=== PATIENT | male | born 1970 | race Caucasian/White ===

== ENCOUNTER → 2017-08-02 | Outpatient (CLI) | payer BC ==
--- NOTE | 2017-08-02 14:23 | CT ---
EXAMINATION TYPE: CT abdomen pelvis wo con DATE OF EXAM: 08/02/2017 COMPARISON: NONE HISTORY: lower anterior abdominal pain X [address] DLP: 1095.6 mGycm Examination of the solid and hollow viscera is limited given the lack of contrast. FINDINGS: LUNG BASES: No evidence for nodule. No evidence for infiltrate. LIVER/GB: The gallbladder is unremarkable. No space-occupying hepatic lesion. PANCREAS: No pancreatic mass identified. No inflammatory process seen. SPLEEN: No evidence for splenomegaly. No intrasplenic lesions seen. ADRENALS: No adrenal nodules identified. No evidence for thickening. KIDNEYS: No evidence for renal mass. No nephrolithiasis. No hydronephrosis. BOWEL: Wall thickening with perisigmoid inflammatory change compatible with acute diverticulitis of t he sigmoid colon. No evidence for abscess or perforation. No evidence for pneumoperitoneum. Lymph nodes: No evidence for adenopathy greater than 1 cm. Abdominal aorta: Atheromatous changes seen. No evidence for aneurysm. Genital organs: No significant abnormality. Other: No significant abnormality. IMPRESSION: 1 UNCOMPLICATED ACUTE SIGMOID DIVERTICULITIS.
== END | disposition home or self-care (01) ==
LOC: RADCTMAIN 13:50
PROVIDERS: ATTEND Nurse Practitioner Adult Health
DX: K57.32 Diverticulitis of large intestine without perforation or abscess without bleeding (principal)
CPT/HCPCS: 74176

== ENCOUNTER 2018-01-03 08:25 | Emergency (ER) | payer BC ==
[2018-01-03] MEDS ORDERED: MORPHINE SULFATE 4MG/4ML SYRG IV STA (08:38)
[2018-01-03] MEDS ORDERED: SODIUM CHLORIDE 0.9% 1,000 ML IV STA ×2 (08:38)
[2018-01-03] MEDS ORDERED: KETOROLAC 30 MG/ML 1 ML VIAL IVP STA (08:38)
--- NOTE | 2018-01-03 08:42 | ED ---
Abdominal Pain HPI - General Chief Complaint: Abdominal Pain Stated Complaint: Kidney stones Time Seen by Provider: 01/03/18 08:30 Source: patient, RN notes reviewed, old records reviewed Mode of arrival: ambulatory Limitations: no limitations - History of Present Illness Initial Comments: This patient's a 47-year-old male with history of kidney stones presents emergency Department with 2 weeks of left sided flank pain. He reports is now radiating towards his groin. He was seen by his primary care physician and had an outpatient CAT scan. There is an 8 mm obstructing left ureter stone. He reports that he was supposed to follow-up with Dr. Meehan the urologist. He reports that the records were not sent over there. He reports that taking the Almo at home has not been managing his pain. Patient has not been on Flomax or Toradol. He is had a history of kidney stones in the past his previous urologist was from [place]. Patient relates these had no vomiting but does feel nauseated. He reports his urines been very dark. Normal bowel movements.Patient denies any recent fever, chills, shortness of breath, chest pain, back pain, abdominal pain, nausea vomiting, numbness or tingling, dysuria or hematuria, constipation or diarrhea, headaches or visual changes, or any other current symptoms - Related Data Home Medications Medication Instructions Recorded Confirmed HYDROcodone/APAP 5-325MG [Almo 1 tab PO Q6HR PRN 01/03/18 01/03/18 5-325] Previous Rx's Medication Instructions Recorded HYDROcodone/APAP 5-325MG [Almo 1 tab PO Q6HR PRN #15 tab 01/03/18 5-325] Ketorolac [Toradol] 10 mg PO Q6HR #20 tab 01/03/18 Ondansetron Odt [Zofran Odt] 4 mg PO Q8HR PRN #12 tab 01/03/18 Tamsulosin [Flomax] 0.4 mg PO DAILY #10 cap 01/03/18 Allergies Allergy/AdvReac Type Severity Reaction Status Date / Time No Known Allergies Allergy Verified 01/03/18 08:55 Review of Systems ROS Statement: Those systems with pertinent positive or pertinent negative responses have been documented in the HPI. ROS Other: All systems not noted in ROS Statement are negative. Past Medical History Additional Past Medical History / Comment(s): kidney stones, diverticulosis History of Any Multi-Drug Resistant Organisms: None Reported Additional Past Surgical History / Comment(s): vasectomy Past Psychological History: Depression Smoking Status: Never smoker Past Alcohol Use History: Rare Past Drug Use History: None Reported General Exam - General Exam Comments Initial Comments: 47-year-old male. Patient does not appear to be in any acute distress. Limitations: no limitations General appearance: alert, in no apparent distress Head exam: Present: atraumatic, normocephalic, normal inspection Eye exam: Present: normal appearance, PERRL, EOMI. Absent: scleral icterus, conjunctival injection, periorbital swelling ENT exam: Present: normal exam, mucous membranes moist Neck exam: Present: normal inspection. Absent: tenderness, meningismus, lymphadenopathy Respiratory exam: Present: normal lung sounds bilaterally. Absent: respiratory distress, wheezes, rales, rhonchi, stridor Cardiovascular Exam: Present: regular rate, normal rhythm, normal heart sounds. Absent: systolic murmur, diastolic murmur, rubs, gallop, clicks GI/Abdominal exam: Present: soft, tenderness (LLQ tenderness, Left CVA tenderness), normal bowel sounds. Absent: distended, guarding, rebound, rigid Extremities exam: Present: normal inspection, full ROM, normal capillary refill. Absent: tenderness, pedal edema, joint swelling, calf tenderness Back exam: Present: normal inspection Neurological exam: Present: alert, oriented X3, CN II-XII intact Psychiatric exam: Present: normal affect, normal mood Skin exam: Present: warm, dry, intact, normal color. Absent: rash Course Vital Signs 01/03/18 01/03/18 01/03/18 08:25 10:09 12:17 Temperature 98.1 F 97.6 F 97.1 F L Pulse Rate 68 57 L 64 Respiratory 18 Rate Blood Pressure 139/70 114/55 121/57 O2 Sat by Pulse 96 95 96 Oximetry - Reevaluation(s) Reevaluation #1: 01/03/18 10:06 Patient is reevaluated and pain is a 2 out of 10. Inform patient that the stone has moved. Reevaluation #2: 01/03/18 12:[address] Koehler. He recommends that since that Is Most of Our the Patient Can Be Discharged with Cipro and Will Give Patient Flomax and Sent Home with Further Pain Medication and Nausea Medicine. Patient Follow-Up with Urology. Medical Decision Making - Medical Decision Making 47 year old male presents with Left flank and LLQ pain, diagnosed with 8mm UPJ stone [address] scan, pain is not managed with at home Almo. At this time the stone has moved to the UVJ based on KUB report. Labs reviewed, hematuria related to stone. 42 WBC, will send for urine culture. He has no vomting. After morphine and toradol his pain is improved. Renal function is stable. Discussed case with Leonila Duran discharge home with flomax, toradol and norco. Discussed follow up in office. Patient agrees to treatment plan and will comply. - Lab Data Result diagrams: 01/03/18 09:14 01/03/18 09:14 Lab Results 01/03/18 01/03/18 01/03/18 Range/Units 09:14 09:14 09:14 WBC 12.4 H (3.8-10.6) k/uL RBC 4.63 (4.30-5.90) m/uL Hgb 14.3 (13.0-17.5) gm/dL Hct 41.8 (39.0-53.0) % MCV 90.3 (80.0-100.0) fL MCH 30.8 (25.0-35.0) pg MCHC 34.1 (31.0-37.0) g/dL RDW 13.1 (11.5-15.5) % Plt Count 335 (150-450) k/uL Neutrophils % 73 % Lymphocytes % 14 % Monocytes % 7 % Eosinophils % 4 % Basophils % 0 % Neutrophils # 9.1 H (1.3-7.7) k/uL Lymphocytes # 1.7 (1.0-4.8) k/uL Monocytes # 0.9 (0-1.0) k/uL Eosinophils # 0.5 (0-0.7) k/uL Basophils # 0.1 (0-0.2) k/uL Sodium 140 (137-145) mmol/L Potassium 4.0 (3.5-5.1) mmol/L Chloride 106 (98-107) mmol/L Carbon Dioxide 23 (22-30) mmol/L Anion Gap 11 mmol/L BUN 15 (9-20) mg/dL Creatinine 1.25 (0.66-1.25) mg/dL Est GFR (CKD-EPI)AfAm 80 (>60 ml/min/1.73 sqM) Est GFR (CKD-EPI)NonAf 69 (>60 ml/min/1.73 sqM) Glucose 92 (74-99) mg/dL Calcium 9.3 (8.4-10.2) mg/dL Total Bilirubin 0.4 (0.2-1.3) mg/dL AST 17 (17-59) U/L ALT 19 L (21-72) U/L Alkaline Phosphatase 61 (38-126) U/L Total Protein 6.3 (6.3-8.2) g/dL Albumin 3.3 L (3.5-5.0) g/dL Amylase 61 (30-110) U/L Lipase 75 (23-300) U/L Urine Color Light Red Urine Appearance Cloudy (Clear) Urine pH 5.0 (5.0-8.0) Ur Specific Coleman 1.013 (1.001-1.035) Urine Protein 1+ H (Negative) Urine Glucose (UA) Negative (Negative) Urine Ketones Negative (Negative) Urine Blood Large H (Negative) Urine Nitrite Negative (Negative) Urine Bilirubin Negative (Negative) Urine Urobilinogen <2.0 (<2.0) mg/dL Ur Leukocyte Esterase Small H (Negative) Urine RBC >182 H (0-5) /hpf Urine WBC 42 H (0-5) /hpf Urine WBC Clumps Rare H (None) /hpf Urine Bacteria Few H (None) /hpf Urine Mucus Few H (None) /hpf - Radiology Data Radiology results: report reviewed Continue distal progression of a millimeter left ureteral calculus from proximal to distal ureter level likely accounting for patient's symptoms. Disposition Clinical Impression: Left ureteral stone Disposition: HOME SELF-CARE Condition: Good Instructions: Ureteral Stones (ED) Additional Instructions: Patient advised to rest, increase fluids. Take all the medications as prescribed. follow up with urology in the next 1-2 days. Return to emergency department if any alarming signs or symptoms occur. Prescriptions: HYDROcodone/APAP 5-325MG [Almo 5-325] 1 tab PO Q6HR PRN #15 tab PRN Reason: Pain Ketorolac [Toradol] 10 mg PO Q6HR #20 tab Ondansetron Odt [Zofran Odt] 4 mg PO Q8HR PRN #12 tab PRN Reason: Pain Tamsulosin [Flomax] 0.4 mg PO DAILY #10 cap Is patient prescribed a controlled substance at discharge?: Yes If prescribed controlled substance>3 days was MAPS reviewed?: Yes When asked, does pt state using other controlled substances?: No Referrals: Ulysses Cisneros MD [Primary Care Provider] - 1-2 days Robbie Holden MD [STAFF PHYSICIAN] - 1-2 days Hira Ross MD [STAFF PHYSICIAN] - 1-2 days Time of Disposition: 12:07
[2018-01-03 09:34] LABS: Basophils # (A) 0.1 k/uL (0-0.2); Basophils % (A) 0 %; Eosinophils # (A) 0.5 k/uL (0-0.7); Eosinophils % (A) 4 %; HCT 41.8 % (39.0-53.0); HGB 14.3 gm/dL (13.0-17.5); Lymphocytes # (A) 1.7 k/uL (1.0-4.8); Lymphocytes % (A) 14 %; MCH 30.8 pg (25.0-35.0); MCHC 34.1 g/dL (31.0-37.0); MCV 90.3 fL (80.0-100.0); Mean Platelet Volume 6.8; Monocytes # (A) 0.9 k/uL (0-1.0); Monocytes % (A) 7 %; Neutrophils # (A) 9.1 k/uL (1.3-7.7); Neutrophils % (A) 73 %; Platelet Count 335 k/uL (150-450); RBC 4.63 m/uL (4.30-5.90); RDW 13.1 % (11.5-15.5); WBC 12.4 k/uL (3.8-10.6)
[2018-01-03 09:47] LABS: Appearance,Urine Cloudy (Clear); Bacteria,Urine Few /hpf; Bilirubin,Urine Negative (Negative); Blood,Urine Large (Negative); Color,Urine Light Red; Glucose,Urine (UA) Negative (Negative); Ketones,Urine Negative (Negative); Leukocyte Esterase,Urine Small (Negative); Mucus,Urine Few /hpf; Nitrite,Urine Negative (Negative); Protein,Urine 1+ (Negative); RBC,Urine >182 /hpf (0-5); Specific Gravity,Urine 1.013 (1.001-1.035); Urobilinogen,Urine <2.0 mg/dL (<2.0); WBC,Urine 42 /hpf (0-5)
[2018-01-03 09:49] LABS: Albumin 3.3 g/dL (3.5-5.0); Calcium 9.3 mg/dL (8.4-10.2); Total Bilirubin 0.4 mg/dL (0.2-1.3); Total Protein 6.3 g/dL (6.3-8.2)
--- NOTE | 2018-01-03 09:58 | XR ---
EXAMINATION TYPE: XR KUB DATE OF EXAM: 01/03/2018 9:45 AM CLINICAL HISTORY: Left-sided flank pain. TECHNIQUE: Two Upright KUB images of the abdomen are obtained. COMPARISON: CT abdomen from 4 days ago. FINDINGS: Suspect there is been interval passage of 8 mm calculus down to distal left ureter level as there is corresponding calculus over left mid to lower part of sacrum on current study. There is overall nonobstructive bowel gas pattern. Visualized lung bases are clear. Visualized osseou s structures are intact. No pneumoperitoneum is evident. IMPRESSION: Continued distal progression of 8mm left ureter calculus from proximal to distal ureter l evel likely accounting for patient's symptoms.
[2018-01-03 12:21] VITALS: BP 121/57; PULSE 64; RESP 18; TEMP 97.1
== END 2018-01-03 12:20 | disposition home or self-care (01) ==
LOC: EC 08:25
DX: N20.1 Calculus of ureter (principal)
CPT/HCPCS: 36415; 80053; 82150; 83690; 85025; 81001; 87086; 74018; 99284; 96374; 96375; 96361 ×3; J1885; J2270

== ENCOUNTER 2018-01-24 13:00 | Inpatient (IN) | payer BC ==
[2018-01-24 13:40] LABS: Appearance,Urine Clear (Clear); Bacteria,Urine Rare /hpf; Bilirubin,Urine Negative (Negative); Blood,Urine Small (Negative); Color,Urine Yellow; Glucose,Urine (UA) Negative (Negative); Ketones,Urine Negative (Negative); Leukocyte Esterase,Urine Negative (Negative); Nitrite,Urine Negative (Negative); Protein,Urine Negative (Negative); RBC,Urine 1 /hpf (0-5); Specific Gravity,Urine 1.005 (1.001-1.035); Squamous Epithelial Cell,Urine <1 /hpf (0-4); Urobilinogen,Urine <2.0 mg/dL (<2.0); WBC,Urine 2 /hpf (0-5)
[2018-01-24] MEDS ORDERED: metroNIDAZOLE-NS PMX 500 MG in SALINE 1 100ML.BAG IVPB STA (13:58)
[2018-01-24] MEDS ORDERED: LEVOFLOXACIN 750MG-D5W PMX 750 MG in DEXTROSE/WATER 1 150ML.BAG IVPB STA (13:58)
[2018-01-24 14:24] LABS: Basophils % (A) 0 %; Eosinophils # (A) 0.3 k/uL (0-0.7); Eosinophils % (A) 3 %; HCT 39.9 % (39.0-53.0); HGB 13.1 gm/dL (13.0-17.5); Lymphocytes # (A) 2.1 k/uL (1.0-4.8); Lymphocytes % (A) 27 %; MCH 29.9 pg (25.0-35.0); MCHC 32.9 g/dL (31.0-37.0); MCV 90.9 fL (80.0-100.0); Mean Platelet Volume 6.5; Monocytes # (A) 0.7 k/uL (0-1.0); Monocytes % (A) 9 %; Neutrophils # (A) 4.7 k/uL (1.3-7.7); Neutrophils % (A) 60 %; Platelet Count 463 k/uL (150-450); RBC 4.39 m/uL (4.30-5.90); RDW 12.7 % (11.5-15.5); WBC 7.9 k/uL (3.8-10.6)
[2018-01-24 14:33] LABS: ALT 38 U/L (21-72); AST 38 U/L (17-59); Albumin 3.2 g/dL (3.5-5.0); Alkaline Phosphatase 50 U/L (38-126); Anion Gap 12 mmol/L; Blood Urea Nitrogen 8 mg/dL (9-20); Calcium 9.3 mg/dL (8.4-10.2); Carbon Dioxide 26 mmol/L (22-30); Chloride 104 mmol/L (98-107); Glucose 94 mg/dL (74-99); Lipase 105 U/L (23-300); Potassium 4.1 mmol/L (3.5-5.1); Sodium 142 mmol/L (137-145); Total Bilirubin 0.1 mg/dL (0.2-1.3); Total Protein 5.9 g/dL (6.3-8.2)
[2018-01-24 14:37] LABS: INR 1.2 (<1.2); Partial Thromboplastin Time 24.1 sec (22.0-30.0); Prothrombin Time 11.7 sec (9.0-12.0)
--- NOTE | 2018-01-24 14:49 | ED ---
Abdominal Pain HPI - General Chief Complaint: Abdominal Pain Stated Complaint: diverticulitis Time Seen by Provider: 01/24/18 13:36 Source: patient, RN notes reviewed Mode of arrival: ambulatory Limitations: no limitations - History of Present Illness Initial Comments: 47-year-old male presented emergency Department chief complaint of left lower quadrant abdominal pain. Patient's been having this pain over the last 4-[address] 2 days ago which showed diverticulitis. Patient's been taking Cipro Flagyl as directed by PCP. PCP did call ER attempted to directly admit the patient though was unsuccessful. Patient had been no improvement pain continuation of diarrhea and fevers at home. - Related Data Home Medications Medication Instructions Recorded Confirmed Aluminum Chloride [Drysol] 1 applic TOPICAL DAILY 01/24/18 01/24/18 Ciprofloxacin HCl [Cipro] 500 mg PO Q12HR 01/24/18 01/24/18 metroNIDAZOLE [Flagyl] 500 mg PO TID 01/24/18 01/24/18 Previous Rx's Medication Instructions Recorded Tamsulosin [Flomax] 0.4 mg PO DAILY #10 cap 01/03/18 Allergies Allergy/AdvReac Type Severity Reaction Status Date / Time No Known Allergies Allergy Verified 01/24/18 13:53 Review of Systems ROS Statement: Those systems with pertinent positive or pertinent negative responses have been documented in the HPI. ROS Other: All systems not noted in ROS Statement are negative. Past Medical History Additional Past Medical History / Comment(s): kidney stones, diverticulosis History of Any Multi-Drug Resistant Organisms: None Reported Additional Past Surgical History / Comment(s): vasectomy Past Psychological History: Depression Smoking Status: Never smoker Past Alcohol Use History: Rare Past Drug Use History: None Reported General Exam Limitations: no limitations General appearance: alert, in no apparent distress Head exam: Present: atraumatic, normocephalic, normal inspection Respiratory exam: Present: normal lung sounds bilaterally. Absent: respiratory distress, wheezes, rales, rhonchi, stridor Cardiovascular Exam: Present: regular rate, normal rhythm, normal heart sounds. Absent: systolic murmur, diastolic murmur, rubs, gallop, clicks GI/Abdominal exam: Present: soft, tenderness (Moderate left lower quadrant tenderness), normal bowel sounds. Absent: distended, guarding, rebound, rigid Back exam: Absent: CVA tenderness (R), CVA tenderness (L) Course Vital Signs 01/24/18 13:22 Temperature 98.2 F Pulse Rate 71 Respiratory 18 Rate Blood Pressure 131/74 O2 Sat by Pulse 96 Oximetry Medical Decision Making - Medical Decision Making 47-year-old male present emergency department for admission for diverticulitis. Patient's fell outpatient treatment. Patient lab work, CT was reviewed with PCP. - Lab Data Result diagrams: 01/24/18 14:17 01/24/18 14:17 Lab Results 01/24/18 01/24/18 01/24/18 Range/Units 13:26 14:17 14:17 WBC 7.9 (3.8-10.6) k/uL RBC 4.39 (4.30-5.90) m/uL Hgb 13.1 (13.0-17.5) gm/dL Hct 39.9 (39.0-53.0) % MCV 90.9 (80.0-100.0) fL MCH 29.9 (25.0-35.0) pg MCHC 32.9 (31.0-37.0) g/dL RDW 12.7 (11.5-15.5) % Plt Count 463 H (150-450) k/uL Neutrophils % 60 % Lymphocytes % 27 % Monocytes % 9 % Eosinophils % 3 % Basophils % 0 % Neutrophils # 4.7 (1.3-7.7) k/uL Lymphocytes # 2.1 (1.0-4.8) k/uL Monocytes # 0.7 (0-1.0) k/uL Eosinophils # 0.3 (0-0.7) k/uL Basophils # 0.0 (0-0.2) k/uL PT (9.0-12.0) sec INR (<1.2) APTT (22.0-30.0) sec Sodium 142 (137-145) mmol/L Potassium 4.1 (3.5-5.1) mmol/L Chloride 104 (98-107) mmol/L Carbon Dioxide 26 (22-30) mmol/L Anion Gap 12 mmol/L BUN 8 L (9-20) mg/dL Creatinine 0.80 (0.66-1.25) mg/dL Est GFR (CKD-EPI)AfAm >90 (>60 ml/min/1.73 sqM) Est GFR (CKD-EPI)NonAf >90 (>60 ml/min/1.73 sqM) Glucose 94 (74-99) mg/dL Plasma Lactic Acid Dar (0.7-2.0) mmol/L Calcium 9.3 (8.4-10.2) mg/dL Total Bilirubin 0.1 L (0.2-1.3) mg/dL AST 38 (17-59) U/L ALT 38 (21-72) U/L Alkaline Phosphatase 50 (38-126) U/L Total Protein 5.9 L (6.3-8.2) g/dL Albumin 3.2 L (3.5-5.0) g/dL Lipase 105 (23-300) U/L Urine Color Yellow Urine Appearance Clear (Clear) Urine pH 6.0 (5.0-8.0) Ur Specific [place] 1.005 (1.001-1.035) Urine Protein Negative (Negative) Urine Glucose (UA) Negative (Negative) Urine Ketones Negative (Negative) Urine Blood Small H (Negative) Urine Nitrite Negative (Negative) Urine Bilirubin Negative (Negative) Urine Urobilinogen <2.0 (<2.0) mg/dL Ur Leukocyte Esterase Negative (Negative) Urine RBC 1 (0-5) /hpf Urine WBC 2 (0-5) /hpf Ur Squamous Epith Cells <1 (0-4) /hpf Urine Bacteria Rare H (None) /hpf 01/24/18 01/24/18 Range/Units 14:17 14:17 WBC (3.8-10.6) k/uL RBC (4.30-5.90) m/uL Hgb (13.0-17.5) gm/dL Hct (39.0-53.0) % MCV (80.0-100.0) fL MCH (25.0-35.0) pg MCHC (31.0-37.0) g/dL RDW (11.5-15.5) % Plt Count (150-450) k/uL Neutrophils % % Lymphocytes % % Monocytes % % Eosinophils % % Basophils % % Neutrophils # (1.3-7.7) k/uL Lymphocytes # (1.0-4.8) k/uL Monocytes # (0-1.0) k/uL Eosinophils # (0-0.7) k/uL Basophils # (0-0.2) k/uL PT 11.7 (9.0-12.0) sec INR 1.2 H (<1.2) APTT 24.1 (22.0-30.0) sec Sodium (137-145) mmol/L Potassium (3.5-5.1) mmol/L Chloride (98-107) mmol/L Carbon Dioxide (22-30) mmol/L Anion Gap mmol/L BUN (9-20) mg/dL Creatinine (0.66-1.25) mg/dL Est GFR (CKD-EPI)AfAm (>60 ml/min/1.73 sqM) Est GFR (CKD-EPI)NonAf (>60 ml/min/1.73 sqM) Glucose (74-99) mg/dL Plasma Lactic Acid Dar 1.1 (0.7-2.0) mmol/L Calcium (8.4-10.2) mg/dL Total Bilirubin (0.2-1.3) mg/dL AST (17-59) U/L ALT (21-72) U/L Alkaline Phosphatase (38-126) U/L Total Protein (6.3-8.2) g/dL Albumin (3.5-5.0) g/dL Lipase (23-300) U/L Urine Color Urine Appearance (Clear) Urine pH (5.0-8.0) Ur Specific [place] (1.001-1.035) Urine Protein (Negative) Urine Glucose (UA) (Negative) Urine Ketones (Negative) Urine Blood (Negative) Urine Nitrite (Negative) Urine Bilirubin (Negative) Urine Urobilinogen (<2.0) mg/dL Ur Leukocyte Esterase (Negative) Urine RBC (0-5) /hpf Urine WBC (0-5) /hpf Ur Squamous Epith Cells (0-4) /hpf Urine Bacteria (None) /hpf Disposition Clinical Impression: Diverticulitis, Failure of outpatient treatment Disposition: ADMITTED IP TO THIS [facility] Condition: Stable Referrals: Ulysses Cisneros MD [Primary Care Provider] - 1-2 days
[2018-01-24] MEDS ORDERED: MORPHINE SULFATE 4 MG/ML SYRINGE IV PRN (14:58)
[2018-01-24] MEDS ORDERED: NALOXONE 0.4 MG/ML 1 ML VIAL IV PRN (14:58)
--- NOTE | 2018-01-24 15:36 | XR ---
EXAMINATION TYPE: XR KUB DATE OF EXAM: 01/24/2018 3:30 PM CLINICAL HISTORY: Left-sided pain. History of diverticulitis and kidney stones. TECHNIQUE: Two Upright KUB images of the abdomen are obtained. COMPARISON: CT abdomen December 30, 2017. Abdominal x-ray January 03, 2018 FINDINGS: Previously visualized left ureter calculus is not clearly seen on current study. There is n o new suspicious calcifications identified. There is overall nonobstructive bowel gas pattern. Visual ized lung bases are clear. Visualized osseous structures are intact. No pneumoperitoneum is noted. IMPRESSION: Overall nonobstructive bowel gas pattern.
[2018-01-24] MEDS: SODIUM CHLORIDE 0.9% 1,000 ML IV SCH (16:32)
--- NOTE | 2018-01-25 00:05 | P.HPIM ---
History of Present Illness H&P Date: 01/24/18 Chief Complaint: Abdominal pain Patient is a 47-year-old male with a known history of diverticulosis, depressions or anxiety and a stones with removal and stent placement in December 2017 came to ER with complaints of left lower quadrant abdominal pain. Patient has been having worsening pain for the past 4-5 days. Denied any diarrhea. Denied any blood in the stools. Patient had CT abdomen pelvis done which showed diverticulitis 2 days ago. Patient has been is taking Cipro and Flagyl as prescribed by his PCP. Patient did not improve, continues to have pain and came to ER for further evaluation and treatment. KUB x-ray in the ER showed normal bowel gas pattern Patient was started on Levaquin and IV Flagyl Review of Systems Constitutional: Patient denies any fever or chills . No generalized weakness or weight loss. Abdomen: Left lower quadrant abdominal pain associated with nausea and 1 episode vomiting. Positive diarrhea. Cardiovascular: Patient denies any chest pain or short of breath no palpitations. Respiratory: patient denied any cough is from production. No shortness of breath Neurologic: Patient denied any numbness or tingling headache. Musculoskeletal: Patient denies any complaints of joint swelling or deformity. Skin: Negative Psychiatric: Negative Endocrine: No heat or cold intolerance. No recent weight gain. Genitourinary: No dysuria or hematuria. All other 14 point ROS negative except the above Past Medical History Past Medical History: Sleep Apnea/CPAP/BIPAP Additional Past Medical History / Comment(s): kidney stones,uti, diverticulosis , depression/anxiety. [place]-no longer uses cpap machine after losing wt History of Any Multi-Drug Resistant Organisms: None Reported Additional Past Surgical History / Comment(s): vasectomy, cyst removed from tongue, lump on neck bx-neg, cystocopy, december 2017-kidney stone removed, stent placed for 1 week then removed Past Anesthesia/Blood Transfusion Reactions: No Reported Reaction Additional Past Anesthesia/Blood Transfusion Reaction / Comment(s): never recieved blood. 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 lives with [facility]. Smoking Status: Never smoker Past Alcohol Use History: Rare Past Drug Use History: None Reported - Past Family History Father Family Medical History: No Reported History Mother Family Medical History: No Reported History Medications and Allergies Home Medications Medication Instructions Recorded Confirmed Type Tamsulosin [Flomax] 0.4 mg PO DAILY #10 cap 01/03/18 01/24/18 Rx Aluminum Chloride [Drysol] 1 applic TOPICAL DAILY 01/24/18 01/24/18 History Ciprofloxacin HCl [Cipro] 500 mg PO Q12HR 01/24/18 01/24/18 History metroNIDAZOLE [Flagyl] 500 mg PO TID 01/24/18 01/24/18 History Allergies Allergy/AdvReac Type Severity Reaction Status Date / Time No Known Allergies Allergy Verified 01/24/18 13:53 Physical Exam Vitals: Vital Signs Temp Pulse Pulse Resp BP BP Pulse Ox 01/24/18 16:41 98.9 F 56 L 20 126/77 96 01/24/18 15:37 98.5 F 70 18 131/65 97 01/24/18 13:22 98.2 F 71 18 131/74 96 Intake and Output 01/24/18 01/24/18 01/24/18 06:59 14:59 22:59 Other: Voiding Method Toilet Weight 97.522 kg 98.5 kg PHYSICAL EXAMINATION: Patient is lying in the bed comfortably, no acute distress, awake alert and oriented.. HEENT: Normocephalic. Neck is supple. Pupils reactive. Nostrils clear. Oral cavity is moist. Ears reveal no drainage. Neck reveals no JVD, carotid bruits, or thyromegaly. CHEST EXAMINATION: Trachea is central. Symmetrical expansion. Lung mcmahan clear to auscultation and percussion. CARDIAC: Normal S1, S2 with no gallops. No murmurs ABDOMEN: Soft. Mild left lower quadrant tenderness. Bowel sounds normal. No organomegaly. No abdominal bruits. Extremities: reveal no edema. No clubbing or cyanosis Neurologically awake, alert, oriented x3 with well-coordinated movements. No focal deficits noted Skin: No rash or skin lesions. Psychiatric: Cooperative. Nonsuicidal Musculoskeletal: No joint swelling or deformity. Normal range of motion. Results CBC & Chem 7: 01/24/18 14:17 01/24/18 14:17 Labs: Abnormal Lab Results - Last 24 Hours (Table) 01/24/18 01/24/18 01/24/18 Range/Units 13:26 14:17 14:17 Plt Count 463 H (150-450) k/uL INR (<1.2) BUN 8 L (9-20) mg/dL Total Bilirubin 0.1 L (0.2-1.3) mg/dL Total Protein 5.9 L (6.3-8.2) g/dL Albumin 3.2 L (3.5-5.0) g/dL Urine Blood Small H (Negative) Urine Bacteria Rare H (None) /hpf 01/24/18 Range/Units 14:17 Plt Count (150-450) k/uL INR 1.2 H (<1.2) BUN (9-20) mg/dL Total Bilirubin (0.2-1.3) mg/dL Total Protein (6.3-8.2) g/dL Albumin (3.5-5.0) g/dL Urine Blood (Negative) Urine Bacteria (None) /hpf Thrombosis Risk Factor Assmnt - DVT/VTE Prophylaxis DVT/VTE Prophylaxis: Pharmacologic Prophylaxis ordered - Choose All That Apply Any of the Below Risk Factors Present?: Yes Each Factor Represents 1 point: Age 41-60 years Each Risk Factor Represents 3 Points: Family history of DVT/PE Thrombosis Risk Factor Assessment Total Risk Factor Score: 4 Thrombosis Risk Factor Assessment Level: Moderate Risk Assessment and Plan Assessment: LLQ Abdominal pain secondary to acute diverticulitis Diarrhea. Rule out C. diff infection History of renal stones recently in December 2017 status post stent placement and removal Morbid obesity with BMI 36.1 Anxiety depression Obstructive sleep apnea no longer uses CPAP machine after losing weight DVT prophylaxis Plan: Patient will be continued on antibiotics in the form of Levaquin and Flagyl. To be started on liquid diet once pain improves and advance as tolerated. Continue with IV hydration and C. diff toxin will be sent if continues to have diarrhea. Current with home medications and further recommendations based on the clinical course. Time with Patient: Greater than 30
[2018-01-25] MEDS: metroNIDAZOLE-NS PMX 500 MG in SALINE 1 100ML.BAG IVPB SCH ×3 (01:04→15:43)
[2018-01-25] MEDS: SODIUM CHLORIDE 0.9% 1,000 ML IV SCH ×2 (06:22→17:51)
[2018-01-25] MEDS: HEPARIN SODIUM,PORCINE 5,000 UNIT/ML 1 ML VIAL SQ SCH ×2 (08:50→15:43)
[2018-01-25] MEDS: PANTOPRAZOLE 40 MG/10 ML VIAL IV SCH (08:50)
[2018-01-25] MEDS: TAMSULOSIN 0.4 MG CAP.ER.24H PO SCH (08:51)
[2018-01-25] MEDS ORDERED: ALUMINUM CHLORIDE TOPICAL SCH (09:00)
[2018-01-25] MEDS: LEVOFLOXACIN 750MG-D5W PMX 750 MG in DEXTROSE/WATER 1 150ML.BAG IVPB SCH (12:48)
[2018-01-25] MEDS: IOPAMIDOL-300 CONTRAST 30 ML VIAL (ORAL USE) PO PRN ×2 (12:51→13:20)
--- NOTE | 2018-01-25 14:35 | CT ---
EXAMINATION TYPE: CT abdomen pelvis w con DATE OF EXAM: 01/25/2018 COMPARISON: 12/30/2017 HISTORY: diverticulitis CT DLP: 1738.2 mGycm CONTRAST: CT scan of the abdomen and pelvis is performed with Oral Contrast and with IV Contrast, patient injec carmelita with 100 mL of Isovue 300. FINDINGS: LUNG BASES-: No visible nodule. No infiltrate. LIVER/GB: No calcified gallstones. No space occupying hepatic lesion. Biliary tree is of normal ca liber. PANCREAS: No inflammation. No distinct mass. SPLEEN: No splenic enlargement. No lesion seen. ADRENALS: No nodule. No thickening. KIDNEYS/BLADDER: No hydronephrosis. No nephrolithiasis. No distinct renal mass. Urinary bladder g rossly unremarkable. BOWEL: Normal appendix. There is wall thickening sigmoid colon with perisigmoid inflammatory change. No evidence for abscess or richard perforation. Findings are compatible with acute diverticulitis. GENITAL ORGANS: No gross abnormality. LYMPH NODES: No greater than 1cm abdominal or pelvic lymph nodes are appreciated. AORTA: No significant abnormality. OSSEOUS STRUCTURES: No significant abnormality is seen. OTHER: No significant additional abnormality is seen. IMPRESSION: 1. Uncomplicated sigmoid diverticulitis.
[2018-01-25] MEDS: ONDANSETRON 4 MG/2 ML VIAL IVP PRN (16:10)
--- NOTE | 2018-01-25 20:06 | P.GSCN ---
History of Present Illness Consult date: 01/25/18 Reason for Consult: Diverticulitis Requesting physician: Fransico Naranjo History of present illness: CHIEF COMPLAINT: Failed outpatient management acute sigmoid diverticulitis HISTORY OF PRESENT ILLNESS: The patient is a 47-year-old gentleman who presents with failed outpatient diverticulitis. This is his first event. Since admission, his abdominal pain of the left lower quadrant has moderately improved. He is tolerating diet. He reports having symptoms well over several weeks. Incidentally, he was also recently diagnosed with kidney stones within the last month when he was seen emergency room. He is about to get in less than 3 weeks. Secondary to his presentation of failed outpatient diverticulitis, general surgery consult. PAST MEDICAL HISTORY: See list. PAST SURGICAL HISTORY: See list. MEDICATIONS: See list. ALLERGIES: See list. SOCIAL HISTORY: Family is at bedside. No illicit drug use FAMILY HISTORY: Consistent with diverticulitis REVIEW OF ORGAN SYSTEMS: CONSTITUTIONAL: No fevers or chills HEENT: No troubles with vision or hearing. No reports of dysphagia. ENDOCRINE: No reports of thyroid disorders. No diabetes. CARDIOVASCULAR: No previous myocardial infarction orcongestive heart failure. RESPIRATORY: No pneumonia. No dyspnea on exertion. GASTROINTESTINAL: No reports of recent blood in stools. Has gastroesophageal reflux disease. Recent colonoscopy NEURO: No reports of stroke or seizure disorders. PSYCH: No reports of suicidal ideation. He has depression. He has anxiety. HEMATOLOGIC: No easy bruising or bleeding LYMPHATIC: The patient denies any lumps and bumps around the neck. GENITOURINARY: Recent kidney stones tract infection. MUSCULOSKELETAL: Has back pain, stiffness or joint arthritis. PHYSICAL EXAM: VITAL SIGNS: Currently stable. GENERAL: Well-developed male in no acute distress. HEENT: No sclera icterus. Extraocular movements grossly intact. Moist buccal mucosa. Head is atraumatic, normocephalic. Hears conversational speech. No nasal drainage. NECK: Supple without lymphadenopathy. CHEST: Non-labored respirations and equal bilateral excursions. CARDIOVASCULAR: Regular rate with regular rhythm. Palpable 2+ radial pulses. ABDOMEN: Soft. Nondistended. Obese. Tenderness along the left lower quadrant. No peritonitis. MUSCULOSKELETAL: No clubbing, cyanosis or edema. NEUROLOGIC: No focal or lateralizing signs. Cranial nerves II through XII grossly intact. PSYCH: Appropriate affect. Alert and oriented to person, place and time. LABS: Reviewed ASSESSMENT: 1. Diverticulitis of the sigmoid colon 2. Obstructive sleep apnea. 3. Morbid obesity due to excess calories 4. BMI 36.1 PLAN: 1. Clinically he is moderately improved from his abdominal pain. 2. No acute surgical intervention needed at this time. 3. Low residue diet upon discharge with follow-up as outpatient. 4. Hospitalization potentially for another 24 hrs with possible discharge in this timeframe. 5. Follow up in office next week. 6. Surgical care plan discussed with patient and family who agreed with the plan. 7. Outpatient colonoscopy completed 1 year ago. Thank you for this kind consultation. Past Medical History Past Medical History: Sleep Apnea/CPAP/BIPAP Additional Past Medical History / Comment(s): kidney stones,uti, diverticulosis , depression/anxiety. [place]-no longer uses cpap machine after losing wt History of Any Multi-Drug Resistant Organisms: None Reported Additional Past Surgical History / Comment(s): vasectomy, cyst removed from tongue, lump on neck bx-neg, cystocopy, december 2017-kidney stone removed, stent placed for 1 week then removed Past Anesthesia/Blood Transfusion Reactions: No Reported Reaction Additional Past Anesthesia/Blood Transfusion Reaction / Comm: never recieved blood. 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 lives with mary. Smoking Status: Never smoker Past Alcohol Use History: Rare Past Drug Use History: None Reported - Past Family History Father Family Medical History: No Reported History Mother Family Medical History: No Reported History Medications and Allergies Home Medications Medication Instructions Recorded Confirmed Type Tamsulosin [Flomax] 0.4 mg PO DAILY #10 cap 01/03/18 01/24/18 Rx Aluminum Chloride [Drysol] 1 applic TOPICAL DAILY 01/24/18 01/24/18 History Levofloxacin [Levaquin] 750 mg PO Q24H #10 tab 01/27/18 Rx metroNIDAZOLE [Flagyl] 500 mg PO TID #30 tab 01/27/18 Rx Allergies Allergy/AdvReac Type Severity Reaction Status Date / Time No Known Allergies Allergy Verified 01/24/18 13:53 Surgical - Exam Vital Signs Temp Pulse Resp BP Pulse Ox 98.2 F 71 18 131/74 96 01/24/18 13:22 01/24/18 13:22 01/24/18 13:22 01/24/18 13:22 01/24/18 13:22 Results - Labs 01/27/18 08:26 01/27/18 08:26 Microbiology - Last 24 Hours (Table) 01/24/18 14:17 Blood Culture - Preliminary Blood No Growth after 24 hours - Imaging CT scan - abdomen: report reviewed, image reviewed US - abdomen: report reviewed, image reviewed (Imaging reviewed in detail with patient and his fiance at bedside. Acute diverticulitis of the sigmoid colon reviewed. No phlegmon or localized abscess found.) Assessment and Plan (1) Diverticulitis Status: Acute Code(s): K57.92 - DVTRCLI OF INTEST, PART UNSP, W/O PERF OR ABSCESS W/O BLEED SNOMED Code(s): 224167229 (2) Failure of outpatient treatment Status: Acute Code(s): Z78.9 - OTHER SPECIFIED HEALTH STATUS SNOMED Code(s) : 581840048
[2018-01-25] MEDS: HYDROcodone/APAP 5-325MG 1 EACH TAB PO PRN (22:20)
[2018-01-26] MEDS: metroNIDAZOLE-NS PMX 500 MG in SALINE 1 100ML.BAG IVPB SCH ×3 (00:48→15:51)
[2018-01-26] MEDS: HEPARIN SODIUM,PORCINE 5,000 UNIT/ML 1 ML VIAL SQ SCH ×3 (00:50→15:51)
[2018-01-26] MEDS: HYDROcodone/APAP 5-325MG 1 EACH TAB PO PRN ×2 (03:19→08:10)
--- NOTE | 2018-01-26 06:22 | PN ---
PROGRESS NOTE DATE OF SERVICE: 01/25/2018 PRESENTING COMPLAINT: Abdominal pain. INTERVAL HISTORY: This is a patient who failed outpatient treatment for acute diverticulitis, admitted with flare up of the same. Abdominal pain is better. The patient did try some clear liquids earlier today. Denies any fever. No nausea or vomiting. The patient states that he has had multiple episodes of diverticulitis. The patient also informs me he is getting in 11 days. Wants that process to go through fine. The patient's last bowel movement was yesterday. REVIEW OF SYSTEMS: Review of systems done for constitutional, cardiovascular, GI, pulmonary; relevant findings as above. CURRENT MEDICATIONS: Current medications are reviewed include Levaquin and Flagyl, IV fluids. PHYSICAL EXAMINATION: On examination, afebrile, pulse 86, respiration 17, blood pressure 120/72, pulse ox 95% on room air. GENERAL APPEARANCE: Well built, BMI 36.1. Lying in bed, comfortable. EYES: Pupils equal. Conjunctivae normal. HENT: External appearance of nose and ears normal. Oral cavity normal. NECK: JVD not raised. Mass not palpable. Respiratory effort . Lungs are clear. CARDIOVASCULAR: First and second sounds normal. No edema. ABDOMEN: Left lower abdomen tenderness. No guarding or rigidity. Liver and spleen not palpable. PSYCHIATRY: Alert and oriented x3. Mood and affect normal. INVESTIGATIONS: White count 7.9. Potassium 4.1. ASSESSMENT: 1. Acute sigmoid diverticulitis having failed outpatient treatment. 2. Hypoalbuminemia, acute phase reactant. 3. Recurrent diverticulitis. 4. Obstructive sleep apnea. 5. Colonic diverticulosis. 6. Obstructive sleep apnea. The patient actually does not use any CPAP machine after losing weight. PLAN: I had a lengthy talk with the patient. I did tell him to have his fiancee come in tomorrow and I will see her after work, she finishes work late afternoon. I also went ahead and ordered a CT scan with contrast that did come back showing there was no microperforation which I was concerned about earlier in the day. I did speak to Dr. Awan from General Surgery who did see the CAT scan and did get to talk to the patient. The patient's diet is being advanced. Meantime, antibiotics are to continue. Total time spent today was about 40 minutes with over 20 to 25 minutes in discussion. MMODL / IJN: [id number] /
[2018-01-26] MEDS: PANTOPRAZOLE 40 MG/10 ML VIAL IV SCH (08:03)
[2018-01-26] MEDS: SODIUM CHLORIDE 0.9% 1,000 ML IV SCH (08:04)
[2018-01-26] MEDS: TAMSULOSIN 0.4 MG CAP.ER.24H PO SCH (08:04)
[2018-01-26] MEDS: LEVOFLOXACIN 750MG-D5W PMX 750 MG in DEXTROSE/WATER 1 150ML.BAG IVPB SCH (12:58)
[2018-01-26] MEDS: ONDANSETRON 4 MG/2 ML VIAL IVP PRN (20:11)
--- NOTE | 2018-01-26 20:19 | PN ---
PROGRESS NOTE DATE OF SERVICE: 01/26/2018. PRESENTING COMPLAINT: Abdominal pain. INTERVAL HISTORY: This patient presented with failed outpatient treatment of acute diverticulitis. Currently he feels better, was tolerating clear liquids this morning. Has had a bowel movement. Overall feeling better, though feels a bit tired. REVIEW OF SYSTEMS: Done for constitutional, cardiovascular, GI, pulmonary; relevant findings as above. CURRENT MEDICATIONS: Reviewed. They include Levaquin and Flagyl. PHYSICAL EXAMINATION: Temperature 97.8, pulse 66, respirations 16, blood pressure 119/69, pulse ox 97% on room air. GENERAL APPEARANCE: Lying in bed, a bit tired-appearing. EYES: Pupils equal. Conjunctivae normal. HEENT: External appearance of nose and ears normal. Oral cavity normal. NECK: JVD not raised. Mass not palpable. RESPIRATORY: Effort normal. Lungs are clear. CARDIOVASCULAR: First and second sounds normal. No edema. ABDOMEN: Decreased left lower abdomen tenderness. No guarding or rigidity. Liver and spleen not palpable. PSYCHIATRY: Alert and oriented x3. Mood and affect normal. INVESTIGATIONS: No blood work from today. ASSESSMENT: 1. Acute sigmoid diverticulitis having failed outpatient treatment. Clinically improving. 2. Hypoalbuminemia; acute phase reactant. 3. Recurrent diverticulitis. 4. Obstructive sleep apnea. Patient has not been using a CPAP since he lost weight. 5. Colonic diverticulosis. PLAN: Care was discussed with the patient. Diet will be advanced today. Patient would like to stay overnight. Care was discussed. Encouraged the patient to be out of bed. MMODL / IJN: [id number] /
--- NOTE | 2018-01-26 21:24 | P.PN ---
Subjective Progress Note Date: 01/26/18 The patient is a pleasant 47-year-old gentleman admitted for failed outpatient acute diverticulitis. Abdominal pain almost completely resolved. He is tolerating diet. His is passing flatus. He had a bowel movement. No fevers or chills. Objective - Vital Signs Vital signs: Vital Signs Temp 98.8 F 01/26/18 14:58 Pulse 86 01/26/18 14:58 Resp 16 01/26/18 14:58 BP 118/69 01/26/18 14:58 Pulse Ox 97 01/26/18 14:58 Intake & Output 01/26/18 01/26/18 01/27/18 06:59 18:59 06:59 Intake Total 320 Balance 320 Intake: Oral 320 Other: Voiding Method Toilet # Voids 2 3 - Exam GENERAL: Well developed and in no acute distress. Pleasant. HEENT: No sclera icterus. Extraocular movements grossly intact. Moist buccal mucosa. Head is atraumatic, normocephalic. Hears conversational speech. No nasal drainage. NECK: Supple without lymphadenopathy. No JV distention. CHEST: Non-labored respirations and equal bilateral excursions. CARDIOVASCULAR: Regular rate and rhythm. Palpable 2+ radial pulses. ABDOMEN: Soft, nondistended. No peritonitis. Resolved left lower quadrant abdominal pain. MUSCULOSKELETAL: No clubbing, cyanosis or edema. NEUROLOGIC: No focal or lateralizing signs. PSYCH: Appropriate affect. Alert and oriented to person, place and time. SKIN: Good skin turgor. Well perfused. - Labs CBC & Chem 7: 01/24/18 14:17 01/24/18 14:17 Labs: Microbiology - Last 24 Hours (Table) 01/24/18 14:17 Blood Culture - Preliminary Blood No Growth after 48 hours Assessment and Plan (1) Diverticulitis Current Visit: Yes Status: Acute Code(s): K57.92 - DVTRCLI OF INTEST, PART UNSP, W/O PERF OR ABSCESS W/O BLEED SNOMED Code(s): 031271516 (2) Failure of outpatient treatment Current Visit: Yes Status: Acute Code(s): Z78.9 - OTHER SPECIFIED HEALTH STATUS SNOMED Code(s): 890197914 Plan: 1. Soft diet upon discharge. 2. May be discharged home. 3. Patient to follow-up as outpatient after his marriage and honeymoon.
[2018-01-27] MEDS: HEPARIN SODIUM,PORCINE 5,000 UNIT/ML 1 ML VIAL SQ SCH ×2 (00:16→08:07)
[2018-01-27] MEDS: metroNIDAZOLE-NS PMX 500 MG in SALINE 1 100ML.BAG IVPB SCH ×2 (00:16→08:07)
[2018-01-27] MEDS: SODIUM CHLORIDE 0.9% 1,000 ML IV SCH ×2 (00:30→09:40)
[2018-01-27 01:36] VITALS: RESP 18
[2018-01-27 06:46] VITALS: BP 135/79; PULSE 100; TEMP 98
[2018-01-27] MEDS ORDERED: PANTOPRAZOLE 40 MG TABLET PO SCH (07:30)
[2018-01-27] MEDS: TAMSULOSIN 0.4 MG CAP.ER.24H PO SCH (08:06)
[2018-01-27 10:14] LABS: Basophils % (A) 0 %; Eosinophils # (A) 0.2 k/uL (0-0.7); Eosinophils % (A) 2 %; HCT 40.3 % (39.0-53.0); HGB 13.6 gm/dL (13.0-17.5); Lymphocytes % (A) 28 %; MCH 30.8 pg (25.0-35.0); MCHC 33.7 g/dL (31.0-37.0); MCV 91.3 fL (80.0-100.0); Monocytes # (A) 0.5 k/uL (0-1.0); Monocytes % (A) 6 %; Neutrophils # (A) 4.5 k/uL (1.3-7.7); Neutrophils % (A) 62 %; Platelet Count 433 k/uL (150-450); RBC 4.41 m/uL (4.30-5.90); RDW 12.6 % (11.5-15.5); WBC 7.2 k/uL (3.8-10.6)
[2018-01-27 10:21] LABS: Anion Gap 10 mmol/L; Blood Urea Nitrogen 4 mg/dL (9-20); Calcium 9.1 mg/dL (8.4-10.2); Carbon Dioxide 28 mmol/L (22-30); Chloride 105 mmol/L (98-107); Glucose 121 mg/dL (74-99); Potassium 4.5 mmol/L (3.5-5.1); Sodium 143 mmol/L (137-145)
[2018-01-27] MEDS: LEVOFLOXACIN 750MG-D5W PMX 750 MG in DEXTROSE/WATER 1 150ML.BAG IVPB SCH (14:12)
[2018-01-27] MEDS ORDERED: metroNIDAZOLE 500 MG TAB PO SCH (16:00)
--- NOTE | 2018-01-27 22:53 | DS ---
DISCHARGE SUMMARY DATE OF ADMISSION: 01/24/2018. DATE OF DISCHARGE: 01/28/2108. FINAL DIAGNOSES: 1. Acute sigmoid diverticulitis, having failed outpatient treatment. 2. Hypoalbuminemia as an acute phase reactant. 3. Recurrent diverticulitis, sigmoid. 4. Obstructive sleep apnea. Patient does not use any CPAP anymore since he lost weight. 5. Colonic diverticulosis. 6. Hypoalbuminemia as an acute phase reactant. HOSPITAL COURSE: This is a very pleasant gentleman who has had a few bouts of diverticulitis, yet again presented with having failed outpatient treatment of diverticulitis. Was put here on IV antibiotics including Levaquin and Flagyl, to which he responded. Was doing better. The patient will probably need surgery down the road. At this point, patient is getting in 9 days time. The patient is having some occasional loose stools. Overall pain is much better, tolerating light diet. On exam, abdomen is soft, nontender. Care was discussed at length with the patient today. CONSULTATIONS: Dr. Awan. DISCHARGE MEDICATIONS: 1. Flomax 0.4 mg daily. 2. Drysol topical daily. 3. Levaquin 750 mg p.o. daily for 10 days. 4. Flagyl 500 mg p.o. t.i.d. for 10 days. DIET: Soft, bland. FOLLOWUP: 1. Follow up with Dr. Cisneros in 3 days. 2. Follow up with Dr. Awan on 02/01/2018. 3. BMP on 01/31/2018. 4. The patient is being given a note to stay off work until further followup. DISCHARGE PLANNING: More than 35 minutes. MMODL / IJN: [id number] /
[2018-01-28] MEDS ORDERED: LEVOFLOXACIN 750 MG TAB PO SCH (14:00)
== END 2018-01-27 14:46 | disposition home or self-care (01) | DRG 392 ==
LOC: EC 13:00 → 4MS4W 15:23
PROVIDERS: ADMIT Hospitalist; ATTEND Hospitalist
DX: K57.32 Diverticulitis of large intestine without perforation or abscess without bleeding (principal); E66.01 Morbid (severe) obesity due to excess calories; F32.9 Major depressive disorder, single episode, unspecified; F41.9 Anxiety disorder, unspecified; E88.09 Other disorders of plasma-protein metabolism, not elsewhere classified; G47.33 Obstructive sleep apnea (adult) (pediatric); Z79.899 Other long term (current) drug therapy; Z68.36 Body mass index [BMI] 36.0-36.9, adult; Z87.440 Personal history of urinary (tract) infections; Z83.79 Family history of other diseases of the digestive system; Z98.52 Vasectomy status; Z87.442 Personal history of urinary calculi
CPT/HCPCS: 36415; 74018; 74177; 80048; 80053; 81001; 83605; 83690; 85025; 85610; 85730; 87040; 96365; 99285

== ENCOUNTER 2018-06-29 08:06 | Day surgery (SDC) | payer BC ==
[2018-06-27 11:05] VITALS: BMI 36.6
[~2018-06-29 08:06] MED LIST: LACTATED RINGERS 1,000 ML IV SCH
--- NOTE | 2018-06-29 08:17 | P.GSHP ---
History of Present Illness H&P Date: 06/29/18 CHIEF COMPLAINT: Colon screen HISTORY OF PRESENT ILLNESS: The patient is a 48-year-old male who presents for colon screen. Lower endoscopy was offered for further evaluation and management. PAST MEDICAL HISTORY: Please see list. PAST SURGICAL HISTORY: Please see list. MEDICATIONS: Please see list. ALLERGIES: Please see list. SOCIAL HISTORY: No illicit drug use FAMILY HISTORY: No reports of Crohn disease or ulcerative colitis. REVIEW OF ORGAN SYSTEMS: CONSTITUTIONAL: No reports of fevers or chills. PHYSICAL EXAM: VITAL SIGNS: Stable GENERAL: Well-developed pleasant in no acute distress. HEENT: No scleral icterus. Extraocular movements grossly intact. Moist buccal mucosa. NECK: Supple without lymphadenopathy. CHEST: Unlabored respirations. Equal bilateral excursions. CARDIOVASCULAR: Regular rate and rhythm. Distal 2+ pulses. ABDOMEN: Soft, nontender, nondistended. MUSCULOSKELETAL: No clubbing, cyanosis, or edema. ASSESSMENT: 1. Colon screen. PLAN: 1. Recommend proceeding with a lower endoscopy Past Medical History Past Medical History: Sleep Apnea/CPAP/BIPAP Additional Past Medical History / Comment(s): kidney stones,uti, diverticulosis, History of Any Multi-Drug Resistant Organisms: None Reported Additional Past Surgical History / Comment(s): vasectomy, cyst removed from tongue, lump on neck bx-neg, cystocopy, december 2017-kidney stone removed, stent placed for 1 week then removed Past Anesthesia/Blood Transfusion Reactions: No Reported Reaction Additional Past Anesthesia/Blood Transfusion Reaction / Comment(s): never recieved blood. Smoking Status: Never smoker - Past Family History Father Family Medical History: No Reported History Mother Family Medical History: No Reported History Medications and Allergies Home Medications Medication Instructions Recorded Confirmed Type Tamsulosin [Flomax] 0.4 mg PO DAILY #10 cap 01/03/18 06/27/18 Rx Aluminum Chloride [Drysol] 1 applic TOPICAL DAILY 01/24/18 06/27/18 History Levofloxacin [Levaquin] 750 mg PO Q24H #10 tab 01/27/18 06/27/18 Rx metroNIDAZOLE [Flagyl] 500 mg PO TID #30 tab 01/27/18 06/27/18 Rx Allergies Allergy/AdvReac Type Severity Reaction Status Date / Time No Known Allergies Allergy Verified 06/27/18 10:53
[2018-06-29 09:12] VITALS: TEMP 98.1
[2018-06-29] MEDS ORDERED: LIDOCAINE 1% INJ 10MG/ML (20 ML MDV) ONE (09:50)
[2018-06-29] MEDS ORDERED: PROPOFOL 10 MG/ML 20 ML VIAL IV ONE (09:50)
--- NOTE | 2018-06-29 10:18 | P.PCN ---
Date of Procedure: 06/29/18 Description of Procedure: PREOPERATIVE DIAGNOSIS: Sigmoid diverticulitis POSTOPERATIVE DIAGNOSIS: Sigmoid diverticulitis Sigmoid colon adenoma Pandiverticulosis OPERATION: Colonoscopy to the ileocecal valve and appendiceal orifice. Colonoscopy with hot snare polypectomy at sigmoid colon SURGEON: Galina Awan MD. ANESTHESIA: MAC. INDICATIONS: The patient is a 48-year-old male who presents with history of diverticulitis. Benefits and risks were described and informed consent was obtained. DESCRIPTION OF PROCEDURE: The patient had undergone Gatorade, MiraLAX and Dulcolax prep. He had been brought into the operating room and laid in the left lateral decubitus position. After adequate intravenous sedation, the rectum was examined with 2% lidocaine jelly. No external hemorrhoids were encountered. The rectal tone was within normal limits. The prostate is smooth and without abnormality. No lesions were palpated in the rectal vault. An Olympus colonoscope was advanced until the ileocecal valve and appendiceal orifice were clearly viewed. The prep was fair with visualization of the mucosal folds. Stool was impacted into the diverticulum of the descending colon. Persistent inflammation was found along the descending colon between 30-40 cm from the anal verge consistent with colitis. The scope was removed with visualization of each mucosal fold. Pandiverticulosis was confirmed with severity along the sigmoid colon. Adenoma of 8 mm was addressed with hot snare polypectomy at 25 cm from the anal verge, sigmoid colon. Retroflexion of the scope demonstrated no internal hemorrhoids. The colon was desufflated. The patient had tolerated the procedure well. Withdrawal time was over 6 minutes. FINDINGS: No internal hemorrhoids No external hemorrhoids Stool was impacted into the diverticulum of the descending colon. Persistent inflammation was found along the descending colon between 30-40 cm from the anal verge consistent with colitis. Pandiverticulosis was confirmed with severity along the sigmoid colon. No arteriovenous malformations. Removal of 1 polyp: - Snare polypectomy 25 cm from the anal verge, 8 mm tubulovillous adenoma polyp. RECOMMENDATIONS: Repeat colonoscopy in 3 years, 2020 Antibiotics for persistent diverticulitis Plan - Discharge Summary New Discharge Prescriptions: No Action Tamsulosin [Flomax] 0.4 mg PO DAILY #10 cap Aluminum Chloride [Drysol] 1 applic TOPICAL DAILY Levofloxacin [Levaquin] 750 mg PO Q24H #10 tab metroNIDAZOLE [Flagyl] 500 mg PO TID #30 tab Discharge Medication List Tamsulosin [Flomax] 0.4 mg PO DAILY #10 cap 01/03/18 [Rx] Aluminum Chloride [Drysol] 1 applic TOPICAL DAILY 01/24/18 [History] Levofloxacin [Levaquin] 750 mg PO Q24H #10 tab 01/27/18 [Rx] metroNIDAZOLE [Flagyl] 500 mg PO TID #30 tab 01/27/18 [Rx]
[2018-06-29 10:25] VITALS: BP 130/77; PULSE 62; RESP 18
== END 2018-06-29 10:59 | disposition home or self-care (01) ==
LOC: ORWHC2ENDO 08:06
PROVIDERS: ATTEND Surgery Plastic and Reconstructive Surgery
DX: D12.5 Benign neoplasm of sigmoid colon (principal); K57.32 Diverticulitis of large intestine without perforation or abscess without bleeding; G47.33 Obstructive sleep apnea (adult) (pediatric); Z99.89 Dependence on other enabling machines and devices; Z87.442 Personal history of urinary calculi; Z79.2 Long term (current) use of antibiotics; Z79.899 Other long term (current) drug therapy
CPT/HCPCS: 88305; 45385; J2001; J2704

== ENCOUNTER 2018-07-29 07:30 | Inpatient (IN) | payer BC ==
[2018-08-30 15:34] VITALS: BMI 35.2
--- NOTE | 2018-09-01 19:39 | P.GSHP ---
History of Present Illness H&P Date: 09/02/18 CHIEF COMPLAINT: History of sigmoid diverticulitis HISTORY OF PRESENT ILLNESS: The patient is a 48-year-old male with long- standing history of sigmoid diverticulitis. He completed a colonoscopy which excluded underlying neoplasm. Now he presents for sigmoid colon resection. PAST MEDICAL HISTORY: Please see list. PAST SURGICAL HISTORY: Please see list. MEDICATIONS: Please see list. ALLERGIES: Please see list. SOCIAL HISTORY: No illicit drug use FAMILY HISTORY: No reports of Crohn disease or ulcerative colitis. REVIEW OF ORGAN SYSTEMS: CONSTITUTIONAL: Denies any fever or chills. HEENT: Denies any trouble with vision or nosebleeds. No difficulty swallowing. LYMPHATIC: The patient denies any lumps and bumps around the neck. ENDOCRINE: Denies any thyroid disorders. Has blood sugar glucose intolerance. RESPIRATORY: Denies pneumonia. Denies any troubles with breathing or dyspnea on exertion. CARDIOVASCULAR: Denies any chest pain, palpitations, or recent heart attacks. GASTROINTESTINAL: Has chronic diverticulitis. GENITOURINARY: Has increased urinary frequency. MUSCULOSKELETAL: Has back pain, stiffness, joint arthritis. NEUROLOGIC: Denies any numbness or tingling along the distal extremities. No seizure disorders or headaches. PSYCHIATRIC: Denies depression or suidical ideation. HEMATOLOGIC: Denies any abnormal bleeding or bruising. PHYSICAL EXAM: VITAL SIGNS: Stable GENERAL: Well-developed pleasant in no acute distress. HEENT: No scleral icterus. Extraocular movements grossly intact. Moist buccal mucosa. He is hard of hearing. NECK: Supple without lymphadenopathy. CHEST: Unlabored respirations. Equal bilateral excursions. CARDIOVASCULAR: Regular rate and rhythm. Distal 2+ pulses. ABDOMEN: Soft, nontender, nondistended. MUSCULOSKELETAL: No clubbing, cyanosis, or edema. NERUO: Cranial nerves 2-12 grossly intact. PSYCH: Alert and oriented to person place and time. ASSESSMENT: 1. History of perforated diverticulitis 2. Morbid obesity, BMI 35.2 PLAN: 1. Benefits and risks of surgical robotic sigmoid resection was reviewed in detail. Robotic-assisted approach was also described. 2. Enhanced colon recovery program. 3. DVT prophylaxis. 4. Antibiotic prophylaxis. 5. Inpatient hospitalization greater than 2 nights. Past Medical History Past Medical History: Sleep Apnea/CPAP/BIPAP Additional Past Medical History / Comment(s): hx kidney stones, diverticulitis, no cpap used, History of Any Multi-Drug Resistant Organisms: None Reported Additional Past Surgical History / Comment(s): vasectomy, cyst removed from tongue, biopsy- lump on neck, cystocopy, december 2017-kidney stone removed-stent placed for 1 week then removed Past Anesthesia/Blood Transfusion Reactions: No Reported Reaction Additional Past Anesthesia/Blood Transfusion Reaction / Comment(s): . Smoking Status: Never smoker - Past Family History Father Family Medical History: No Reported History Mother Family Medical History: Deep Vein Thrombosis (DVT) Medications and Allergies Home Medications Medication Instructions Recorded Confirmed Type Biotin 5,000 mcg PO DAILY 08/31/18 08/31/18 History Cholecalciferol [Vitamin D3] 5,000 unit PO DAILY 08/31/18 08/31/18 History Citalopram Hydrobromide 20 mg PO QAM 08/31/18 08/31/18 History [Citalopram HBr] L.acidoph,Paracasei, B.lactis 1 each PO DAILY 08/31/18 08/31/18 History [Probiotic] Magnesium Oxide [Mag-Oxide] 400 mg PO DAILY 08/31/18 08/31/18 History Multivitamins, Thera [Multivitamin 1 tab PO DAILY 08/31/18 08/31/18 History (formulary)] Potassium 99 mg PO DAILY 08/31/18 08/31/18 History Vitamin D3 + K2 1 b PO DAILY 08/31/18 08/31/18 History Allergies Allergy/AdvReac Type Severity Reaction Status Date / Time No Known Allergies Allergy Verified 08/30/18 15:25
[2018-09-02] MEDS ORDERED: HEPARIN SODIUM,PORCINE 5,000 UNIT/ML 1 ML VIAL SQ ONE (05:00)
[2018-09-02] MEDS ORDERED: ceFAZolin IN SWFI 2 GM/20 ML SYRINGE IVP ONE ×2 (05:00→07:00)
[2018-09-02] MEDS ORDERED: metroNIDAZOLE-NS PMX 500 MG in SALINE 1 100ML.BAG IVPB ONE ×2 (05:00→07:00)
[2018-09-02] MEDS ORDERED: fentaNYL (PF) 50 MCG/ML 2 ML AMP IV PRN (06:18)
[2018-09-02] MEDS ORDERED: ONDANSETRON 4 MG/2 ML VIAL IVP ONE (06:18)
[2018-09-02] MEDS ORDERED: DEXAMETHASONE SOD PHOSPHATE 10 MG/ML 1 ML VIAL IV ONE (06:18)
[2018-09-02] MEDS ORDERED: MIDAZOLAM 2 MG/2 ML VIAL IV PRN (06:18)
[2018-09-02] MEDS ORDERED: LIDOCAINE 1% 20 ML VIAL (10MG/ML) FOR IV START INTRADERMA PRN (06:18)
[2018-09-02] MEDS ORDERED: Antibiotics per Pharmacy 1 EACH MISC MISCELLANE PRN (06:18)
[2018-09-02] MEDS ORDERED: HYDROmorphone 1 MG/ML 1 ML SYRINGE IVP PRN (06:18)
[2018-09-02] MEDS ORDERED: ALVIMOPAN 12 MG CAPSULE PO ONE (07:00)
[2018-09-02] MEDS ORDERED: ACETAMINOPHEN IV (For NPO) 1,000 MG in EMPTY BAG 1 BAG IVPB ONE (07:00)
[2018-09-02] MEDS: LACTATED RINGERS 1,000 ML IV SCH (12:03)
[2018-09-02 12:35] LABS: Basophils % (A) 1 %; Eosinophils # (A) 0.1 k/uL (0-0.7); Eosinophils % (A) 2 %; HGB 16.5 gm/dL (13.0-17.5); Lymphocytes # (A) 1.7 k/uL (1.0-4.8); Lymphocytes % (A) 27 %; MCH 30.6 pg (25.0-35.0); MCHC 33.7 g/dL (31.0-37.0); MCV 90.8 fL (80.0-100.0); Mean Platelet Volume 6.3; Monocytes # (A) 0.5 k/uL (0-1.0); Monocytes % (A) 8 %; Neutrophils # (A) 3.6 k/uL (1.3-7.7); Neutrophils % (A) 58 %; Platelet Count 321 k/uL (150-450); RBC 5.39 m/uL (4.30-5.90); WBC 6.3 k/uL (3.8-10.6)
[2018-09-02] MEDS ORDERED: ONDANSETRON 4 MG/2 ML VIAL IVP PRN ×2 (12:47→17:07)
[2018-09-02] MEDS ORDERED: diphenhydrAMINE 50 MG/ML 1 ML VIAL IVP PRN (12:47)
[2018-09-02] MEDS ORDERED: NALOXONE 0.4 MG/ML 1 ML VIAL IV PRN (12:47)
[2018-09-02] MEDS ORDERED: fentaNYL (PF) 50 MCG/ML 2 ML AMP ONE (12:48)
[2018-09-02] MEDS ORDERED: VECURONIUM 10 MG VIAL IV ONE (12:48)
[2018-09-02] MEDS ORDERED: LIDOCAINE 1% INJ 10MG/ML (20 ML MDV) ONE (12:48)
[2018-09-02] MEDS ORDERED: NEOSTIGMINE 1 MG/ML 10 ML VIAL ONE (12:48)
[2018-09-02] MEDS ORDERED: MIDAZOLAM 2 MG/2 ML VIAL ONE (12:48)
[2018-09-02] MEDS ORDERED: GLYCOPYRROLATE 0.2 MG/ML 2 ML VIAL ONE (12:48)
[2018-09-02] MEDS ORDERED: PROPOFOL 10 MG/ML 20 ML VIAL IV ONE (12:48)
[2018-09-02] MEDS ORDERED: ePHEDrine SULFATE/0.9% NACL/PF 50 MG/5 ML SYRINGE IV ONE (12:48)
[2018-09-02] MEDS ORDERED: BUPIVACAIN-EPI 0.25%-1:200,000 30 ML VIAL SQ ONE (13:45)
[2018-09-02 13:48] LABS: ALT 36 U/L (21-72); AST 33 U/L (17-59); Alkaline Phosphatase 52 U/L (38-126); Anion Gap 9 mmol/L; Blood Urea Nitrogen 8 mg/dL (9-20); Calcium 9.6 mg/dL (8.4-10.2); Carbon Dioxide 25 mmol/L (22-30); Chloride 107 mmol/L (98-107); Glucose 94 mg/dL (74-99); Potassium 4.3 mmol/L (3.5-5.1); Sodium 141 mmol/L (137-145); Total Bilirubin 0.5 mg/dL (0.2-1.3); Total Protein 7.3 g/dL (6.3-8.2)
[2018-09-02] MEDS ORDERED: LACTATED RINGERS 1,000 ML IV ONE ×2 (16:15→16:25)
--- NOTE | 2018-09-02 17:02 | P.OP ---
Date of Procedure: 09/02/18 Description of Procedure: SURGEON: NATALIA PRESTON MD PREOPERATIVE DIAGNOSES: 1. History of recurrent sigmoid diverticulitis 2. Morbid obesity due to excess calories, BMI 35.2 3. Obstructive sleep apnea 4. History of kidney stones 5. Depressive disorder 6. Chronic low magnesium levels POSTOPERATIVE DIAGNOSES: 1. History of recurrent sigmoid diverticulitis 2. Morbid obesity due to excess calories, BMI 35.2 3. Obstructive sleep apnea 4. History of kidney stones 5. Depressive disorder 6. Chronic low magnesium levels 7. Pandiverticular disease of the colon 8. Pelvic peritoneal adhesions sigmoid colon to abdominal Procedure(s) Performed: 1. Robotic-assisted daVinci Xi laparoscopic extensive lysis of adhesions over 1 hour 2. Robotic-assisted daVinci Xi laparoscopic sigmoid colectomy 3. Application of PREVENA 13-cm wound VAC at left upper quadrant Anesthesia: GETA, local, epidural Estimated Blood Loss (ml): 30 Pathology: other (sigmoid colon) Condition: stable Disposition: floor COMPLICATIONS: None. Operative Findings: 1. Active diverticulitis in pelvis with redundant sigmoid colon 2. Sigmoid resection with isoperistaltic linear daij-gw-oryc anastomosis using 45 mm blue loads 3. Very large sigmoid specimen requiring enlargement of left upper quadrant incision to 4-cm including firing staple from 8 mm to 12 mm trocar 4. Bon Carmen closure of left upper quadrant incision captured with imaging 5. Completely dry pelvis with minimal blood loss robotic-assisted approach 6. Console time 149 minutes INDICATIONS: The patient is a 48-year-old male with personal history of sigmoid diverticulitis, recurrent. Surgical intervention was described given the severity of his symptoms. Benefits and risks, including infection, bowel injury , ureteral injury, colostomy creation and possibility for additional surgery was discussed at length. Informed consent was obtained. All questions of the patient and family were answered. DESCRIPTION: Earlier the patient had undergone a bowel prep using the enhanced colon recovery program. The patient was transferred to the operating room. After general anesthesia, the abdomen was prepped and draped in standard sterile fashion. A Noel catheter was placed. The abdomen was then prepped and draped in standard sterile fashion as Ioban was placed along the abdomen to minimize any contamination of skin floor. After a timeout protocol was performed, attention was then brought to the left upper quadrant whereby a 0 degree 5 mm laparoscopic trocar entry was performed. The abdominal cavity was entered and insufflated to 15 mmHg pressure, which he tolerated well. Diagnostic laparoscopy confirmed active diverticulitis of the left pelvis. Next a robotic 8-mm trocar was placed along the epigastrium 20 cm superior from the pelvis. A 12 mm port was placed along the right upper quadrant. Ports were placed 10 cm apart from each other including 15-20 cm away from the target anatomy of the left pelvis. The 5-mm port was exchanged for an 12 mm robotic port. Another 8 mm port was placed along the left upper quadrant. The stapler 12-mm port was arranged along the right lateral abdominal wall and left upper quadrant. The patient was then placed in Trendelenburg position, at least 14. The robotic da Michael XI system was primed. The robot was docked from the left side of the patient. Instruments were interchanged by the facilities assistant including scissors, atraumatic graspers, needle driver's license reviewing officer, robotic stapler and vessel sealer. Next, attention was brought to identify the sigmoid colon. To address the left pelvic phlegmon, combination of blunt including sharp dissection was performed using a scissor with electrobovie cautery and vessel sealer. Extensive and careful dissection was performed without injury to the bladder. Extensive lysis of adhesions occurred well over 1 hour to avoid injury to the ureter and bladder. He had moderate redundant sigmoid colon. A stay suture using 3-0 silk was placed along the anterior serosa of the descending colon including along the sigmoid colon. The sigmoid mesentery was mobilized using a vessel sealer whereby the distal sigmoid colon was marked and tagged. Using multiple fires of the robot stapler 45 mm green/blue loads, the distal sigmoid colon was divided. Mobilization of the colon was performed to the pelvic brim along the sacral promontory. The mesentery of the sigmoid colon was mobilized towards the descending colon using a vessel sealer. Next, the descending colon was divided using 2 fires of the robotic stapler 45 mm green/blue load. The rest of the sigmoid colon mesentery was mobilized using vessel sealer. The sigmoid mesentery was moderately bulky and dense from the severity of recurrent inflammation and infection. Additionally, the sigmoid colon was mobilized onto the colon to minimize injury to the ureters. The proximal and distal colon was brought in an isoperistaltic fashion after placing interrupted sutures along the proposed cristina-lumen using 3-0 silk. Along the tinea coli of the proximal including distal limbs, a colotomy was prepared along both limbs. Next, a 45 mm blue stapler was fired to create the cristina- lumen. The colotomy of the cristina-lumen was closed using 3-0 silk followed by 2 firings of a 45 mm blue load. All needles and sponges were removed from the abdominal cavity. The robot was undocked. Via the left upper quadrant, the resected colon was brought out through the 12 mm trocar after widening the skin incision to 5-cm. The fascial defect was oversewn using 0 Vicryl and a Bon Carmen. All incisions were copiously irrigated using dilute normal saline and hydrogen peroxide mixture. Next all pneumoperitoneum was evacuated from the abdominal cavity. The 8-mm trocar sites were reapproximated using 4-0 Monocryl in an interrupted subcuticular fashion. Suture 3-0 Vicryl was used to reapproximate the subcutaneous tissue followed by 4-0 Monocryl in an interrupted subcuticular fashion. Local anesthetic was infiltrated to all wounds for postop analgesia. All incisions were also cleansed with diluted hydrogen peroxide. A PREVENA 13- cm wound VAC was placed over the specimen extraction site. Liquid glue was applied to the rest of the skin incisions. The patient was extubated successfully. Intraoperative photos were reviewed with the patient's family who were overall pleased with the level of care. The patient was transferred to the postanesthesia care unit in stable condition.
[2018-09-02] MEDS ORDERED: BENZOCAINE/MENTHOL LOZENG 1 EACH LOZENGE MUCOUS MEM PRN (17:03)
[2018-09-02] MEDS ORDERED: SODIUM CHLORIDE 0.9% 2,000 ML IV ONE (17:06)
[2018-09-02] MEDS: ROPIVACAINE 250 MG, HYDROMORPHONE (PF) 5 MG in SODIUM CHLORIDE 0.9% 200 ML EPIDURAL PRN ×2 (17:08→18:44)
[2018-09-02] MEDS: METOCLOPRAMIDE 5 MG/ML 2 ML VIAL IVP SCH (21:18)
[2018-09-02] MEDS: HEPARIN SODIUM,PORCINE 5,000 UNIT/ML 1 ML VIAL SQ SCH (21:18)
[2018-09-03] MEDS: METOCLOPRAMIDE 5 MG/ML 2 ML VIAL IVP SCH ×5 (00:15→23:45)
[2018-09-03 03:19] VITALS: RESP 16
[2018-09-03] MEDS: D5-0.45% NACL WITH KCL 20MEQ/L 1,000 ML IV SCH ×4 (04:43→18:22)
[2018-09-03] MEDS: LACTATED RINGERS 1,000 ML IV SCH (07:25)
[2018-09-03] MEDS: HEPARIN SODIUM,PORCINE 5,000 UNIT/ML 1 ML VIAL SQ SCH ×2 (08:06→20:53)
[2018-09-03] MEDS: ALVIMOPAN 12 MG CAPSULE PO SCH ×2 (08:06→20:52)
[2018-09-03 08:08] LABS: Basophils % (A) 0 %; Eosinophils % (A) 0 %; HCT 40.3 % (39.0-53.0); HGB 13.7 gm/dL (13.0-17.5); Lymphocytes # (A) 1.6 k/uL (1.0-4.8); Lymphocytes % (A) 15 %; MCH 31.9 pg (25.0-35.0); MCV 93.8 fL (80.0-100.0); Mean Platelet Volume 6.6; Monocytes # (A) 0.9 k/uL (0-1.0); Monocytes % (A) 9 %; Neutrophils # (A) 7.7 k/uL (1.3-7.7); Neutrophils % (A) 74 %; Platelet Count 262 k/uL (150-450); RBC 4.29 m/uL (4.30-5.90); RDW 13.1 % (11.5-15.5); WBC 10.3 k/uL (3.8-10.6)
[2018-09-03 08:18] LABS: Anion Gap 4 mmol/L; Blood Urea Nitrogen 5 mg/dL (9-20); Calcium 8.8 mg/dL (8.4-10.2); Carbon Dioxide 28 mmol/L (22-30); Chloride 107 mmol/L (98-107); Glucose 111 mg/dL (74-99); Potassium 4.4 mmol/L (3.5-5.1); Sodium 139 mmol/L (137-145)
--- NOTE | 2018-09-03 14:01 | P.PN ---
Subjective Progress Note Date: 09/03/18 CHIEF COMPLAINT: Status post robotic colectomy HISTORY OF PRESENT ILLNESS: The patient is a 48-year-old male postop day 1 status post robotic sigmoid colectomy for complicated diverticulitis. He is doing well. He is ambulating. "I feel rumbling in the stomach". No abdominal distention. No nausea or vomiting. Pain is well-controlled with epidural. PHYSICAL EXAM: VITAL SIGNS: GENERAL: Well-developed in no acute distress. HEENT: No sclera icterus. Extraocular movements grossly intact. Moist buccal mucosa. Head is atraumatic, normocephalic. Hears conversational speech. No nasal drainage. NECK: Supple without lymphadenopathy. CHEST: Non-labored respirations and equal bilateral excursions. CARDIOVASCULAR: Palpable 2+ radial pulses. ABDOMEN: Soft. Nondistended. No infection or cellulitis. PREVENA VAC intact. MUSCULOSKELETAL: No clubbing, cyanosis or edema. NEUROLOGIC: No focal or lateralizing signs. Cranial nerves II through XII grossly intact. PSYCH: Appropriate affect. Alert and oriented to person, place and time. : Urine clear SKIN: Well perfused. Good skin turgor. ASSESSMENT: 1. Complex sigmoid diverticulitis PLAN: 1. Discontinue epidural with start of oral pain meds 2. Liquid diet advised upon discharge Objective - Vital Signs Vital signs: Vital Signs Temp 98.1 F 09/03/18 08:11 Pulse 51 L 09/03/18 08:11 Resp 16 09/03/18 08:14 BP 108/63 09/03/18 08:11 Pulse Ox 98 09/03/18 08:11 Intake & Output 09/02/18 09/03/18 09/03/18 18:59 06:59 18:59 Intake Total 3110 240 Output Total 155 900 Balance 2955 -900 240 Weight 97.522 kg Intake: IV 3110 Oral 240 Output: Urine 125 900 Estimated Blood Loss 30 Other: Voiding Method Indwelling Catheter Indwelling Catheter - Labs CBC & Chem 7: 09/03/18 07:17 09/03/18 07:17 Labs: Abnormal Lab Results - Last 24 Hours (Table) 09/03/18 09/03/18 Range/Units 07:17 07:17 RBC 4.29 L (4.30-5.90) m/uL BUN 5 L (9-20) mg/dL Glucose 111 H (74-99) mg/dL Assessment and Plan (1) Perforation of sigmoid colon due to diverticulitis Current Visit: Yes Status: Acute Code(s): K57.20 - DVTRCLI OF LG INT W PERFORATION AND ABSCESS W/O BLEEDING SNOMED Code(s): 8499253125708901 (2) Morbid obesity due to excess calories Current Visit: Yes Status: Acute Code(s): E66.01 - MORBID (SEVERE) OBESITY DUE TO EXCESS CALORIES SNOMED Code(s): 612976510 (3) BMI 35.0-35.9,adult Current Visit: Yes Status: Acute Code(s): Z68.35 - BODY MASS INDEX (BMI) 35.0-35.9, ADULT SNOMED Code(s): 280782539 (4) Anxiety disorder Current Visit: Yes Status: Acute Code(s): F41.9 - ANXIETY DISORDER, UNSPECIFIED SNOMED Code(s): 087257963
[2018-09-03] MEDS ORDERED: TAMSULOSIN 0.4 MG CAP.ER.24H PO STA (14:04)
--- NOTE | 2018-09-03 15:16 | P.PN ---
Progress Note - Text 09/03 152 48-year-old male status post sigmoid colectomy by Dr. Awan. Patient has an epidural catheter for postop pain control with the solution running at 8 mL an hour. Patient has a VAS of 3 with no motor or sensory deficits. Surgeon once epidural DC'd nurse informed
[2018-09-03] MEDS: HYDROmorphone 1 MG/ML 1 ML SYRINGE IVP PRN (17:19)
[2018-09-03] MEDS: HYDROcodone/APAP 5-325MG 1 EACH TAB PO PRN (20:52)
[2018-09-03] MEDS: SIMETHICONE 40 MG/0.6 ML DROPS 2,000 MG/30 ML BOTTLE PO SCH ×2 (22:19→23:44)
[2018-09-04] MEDS: HYDROmorphone 1 MG/ML 1 ML SYRINGE IVP PRN (01:12)
[2018-09-04] MEDS: D5-0.45% NACL WITH KCL 20MEQ/L 1,000 ML IV SCH ×2 (04:57→12:42)
[2018-09-04] MEDS: METOCLOPRAMIDE 5 MG/ML 2 ML VIAL IVP SCH ×2 (05:51→12:43)
[2018-09-04] MEDS: HYDROcodone/APAP 5-325MG 1 EACH TAB PO PRN ×3 (06:09→17:06)
[2018-09-04 07:58] LABS: Basophils % (A) 0 %; Eosinophils # (A) 0.1 k/uL (0-0.7); Eosinophils % (A) 1 %; HCT 41.7 % (39.0-53.0); HGB 13.5 gm/dL (13.0-17.5); Lymphocytes # (A) 1.5 k/uL (1.0-4.8); Lymphocytes % (A) 14 %; MCH 30.7 pg (25.0-35.0); MCHC 32.4 g/dL (31.0-37.0); Mean Platelet Volume 6.9; Monocytes # (A) 0.9 k/uL (0-1.0); Monocytes % (A) 8 %; Neutrophils # (A) 8.1 k/uL (1.3-7.7); Neutrophils % (A) 75 %; Platelet Count 262 k/uL (150-450); RBC 4.39 m/uL (4.30-5.90); RDW 13.2 % (11.5-15.5); WBC 10.8 k/uL (3.8-10.6)
[2018-09-04] MEDS: SIMETHICONE 40 MG/0.6 ML DROPS 2,000 MG/30 ML BOTTLE PO SCH ×2 (08:09→12:44)
[2018-09-04] MEDS: HEPARIN SODIUM,PORCINE 5,000 UNIT/ML 1 ML VIAL SQ SCH (08:10)
[2018-09-04] MEDS: ALVIMOPAN 12 MG CAPSULE PO SCH (08:10)
[2018-09-04 08:15] LABS: Anion Gap 7 mmol/L; Blood Urea Nitrogen 3 mg/dL (9-20); Calcium 8.7 mg/dL (8.4-10.2); Carbon Dioxide 26 mmol/L (22-30); Chloride 105 mmol/L (98-107); Glucose 90 mg/dL (74-99); Magnesium 1.3 mg/dL (1.6-2.3); Phosphorus 2.6 mg/dL (2.5-4.5); Potassium 4.2 mmol/L (3.5-5.1); Sodium 138 mmol/L (137-145)
[2018-09-04] MEDS ORDERED: TAMSULOSIN 0.4 MG CAP.ER.24H PO SCH (08:30)
[2018-09-04 09:24] VITALS: BP 112/68; PULSE 62; TEMP 98
[2018-09-04] MEDS: LACTATED RINGERS 1,000 ML IV SCH (09:38)
[2018-09-04] MEDS ORDERED: ceFAZolin IN SWFI 2 GM/20 ML SYRINGE IVP SCH (10:30)
[2018-09-04] MEDS ORDERED: metroNIDAZOLE-NS PMX 500 MG in SALINE 1 100ML.BAG IVPB SCH (11:00)
--- NOTE | 2018-09-04 11:05 | P.PN ---
Subjective Progress Note Date: 09/04/18 CHIEF COMPLAINT: Status post robotic colectomy HISTORY OF PRESENT ILLNESS: The patient is a 48-year-old male postop day 2 status post robotic sigmoid colectomy for complicated diverticulitis. He has passed flatus and has multiple bowel movements. No fevers or chills. Pain is controlled. PHYSICAL EXAM: VITAL SIGNS: GENERAL: Well-developed in no acute distress. HEENT: No sclera icterus. Extraocular movements grossly intact. Moist buccal mucosa. Head is atraumatic, normocephalic. Hears conversational speech. No nasal drainage. NECK: Supple without lymphadenopathy. CHEST: Non-labored respirations and equal bilateral excursions. CARDIOVASCULAR: Palpable 2+ radial pulses. ABDOMEN: Soft. Nondistended. No infection or cellulitis. PREVENA VAC intact. MUSCULOSKELETAL: No clubbing, cyanosis or edema. NEUROLOGIC: No focal or lateralizing signs. Cranial nerves II through XII grossly intact. PSYCH: Appropriate affect. Alert and oriented to person, place and time. : Urine clear SKIN: Well perfused. Good skin turgor. ASSESSMENT: 1. Complex sigmoid diverticulitis PLAN: 1. He has history of chronic low magnesium. Magnesium infusion prior to discharge. 2. Post op antibiotics for history of completed diverticulitis. 3. Portable wound VAC to be discontinued in the office. 4. Discharge diet includes full liquids. Objective - Vital Signs Vital signs: Vital Signs Temp 98.0 F 09/04/18 08:36 Pulse 62 09/04/18 08:36 Resp 16 09/04/18 08:36 BP 112/68 09/04/18 08:36 Pulse Ox 94 L 09/04/18 08:36 Intake & Output 09/03/18 09/04/18 09/04/18 18:59 06:59 18:59 Intake Total 1970 240 Output Total 1900 225 Balance 70 -225 240 Intake: Intake, IV Titration 1250 Amount D5-0.45% NaCl with KCl 1250 20Meq/l 1,000 ml @ 125 mls/hr IV .Q8H [facility] Rx#: [id number] Oral 720 240 Output: Urine 1900 225 Uretheral (Noel) 1900 Other: Voiding Method Indwelling Catheter - Labs CBC & Chem 7: 09/04/18 06:43 09/04/18 06:43 Labs: Abnormal Lab Results - Last 24 Hours (Table) 09/04/18 09/04/18 Range/Units 06:43 06:43 WBC 10.8 H (3.8-10.6) k/uL Neutrophils # 8.1 H (1.3-7.7) k/uL BUN 3 L (9-20) mg/dL Magnesium 1.3 L (1.6-2.3) mg/dL Assessment and Plan (1) Perforation of sigmoid colon due to diverticulitis Current Visit: Yes Status: Acute Code(s): K57.20 - DVTRCLI OF LG INT W PERFORATION AND ABSCESS W/O BLEEDING SNOMED Code(s): 0909765569053348 (2) Morbid obesity due to excess calories Current Visit: Yes Status: Acute Code(s): E66.01 - MORBID (SEVERE) OBESITY DUE TO EXCESS CALORIES SNOMED Code(s): 894815167 (3) BMI 35.0-35.9,adult Current Visit: Yes Status: Acute Code(s): Z68.35 - BODY MASS INDEX (BMI) 35.0-35.9, ADULT SNOMED Code(s): 403235571 (4) Anxiety disorder Current Visit: Yes Status: Acute Code(s): F41.9 - ANXIETY DISORDER, UNSPECIFIED SNOMED Code(s): 571004369
[2018-09-04] MEDS: MAGNESIUM SULFATE-D5W PMX 1 GM in DEXTROSE/WATER 1 100ML.BAG IVPB SCH ×4 (11:14→15:03)
--- NOTE | 2018-09-04 11:18 | P.DS ---
Providers Date of admission: 09/02/18 11:03 Expected date of discharge: 09/04/18 Attending physician: Galina Awan Primary care physician: Ulysses Cisneros - Discharge Diagnosis(es) (1) Perforation of sigmoid colon due to diverticulitis Current Visit: Yes Status: Acute (2) Morbid obesity due to excess calories Current Visit: Yes Status: Acute (3) BMI 35.0-35.9,adult Current Visit: Yes Status: Acute (4) Anxiety disorder Current Visit: Yes Status: Acute Hospital Course: The patient is a 48-year-old gentleman who comes in with complicated recurrent diverticulitis. He is status post robotic colectomy with almost 1 foot of colon removed. Postprocedure, he was doing very well. He passed flatus within 24 hours of his procedure. He also had bowel movements prior to discharge. He was tolerating diet. Pain was well controlled. He has chronic low magnesium which infusions were given. Discharge instructions were reviewed. Wound VAC to be discontinued in the office. He had no cellulitis or infection of the abdomen. No peritonitis. Minimal abdominal pain noted. For history of complicated diverticulitis, antibiotics postdischarge reviewed Patient and his family verbalized understanding of discharge instructions. CHIEF COMPLAINT: Status post robotic colectomy HISTORY OF PRESENT ILLNESS: The patient is a 48-year-old male postop day 2 status post robotic sigmoid colectomy for complicated diverticulitis. He has passed flatus and has multiple bowel movements. No fevers or chills. Pain is controlled. PHYSICAL EXAM: VITAL SIGNS: GENERAL: Well-developed in no acute distress. HEENT: No sclera icterus. Extraocular movements grossly intact. Moist buccal mucosa. Head is atraumatic, normocephalic. Hears conversational speech. No nasal drainage. NECK: Supple without lymphadenopathy. CHEST: Non-labored respirations and equal bilateral excursions. CARDIOVASCULAR: Palpable 2+ radial pulses. ABDOMEN: Soft. Nondistended. No infection or cellulitis. PREVENA VAC intact. MUSCULOSKELETAL: No clubbing, cyanosis or edema. NEUROLOGIC: No focal or lateralizing signs. Cranial nerves II through XII grossly intact. PSYCH: Appropriate affect. Alert and oriented to person, place and time. : Urine clear SKIN: Well perfused. Good skin turgor. ASSESSMENT: 1. Complex sigmoid diverticulitis PLAN: 1. He has history of chronic low magnesium. Magnesium infusion prior to discharge. 2. Post op antibiotics for history of completed diverticulitis. 3. Portable wound VAC to be discontinued in the office. 4. Discharge diet includes full liquids. Objective - Vital Signs Vital signs: Vital Signs Temp 98.0 F 09/04/18 08:36 Pulse 62 09/04/18 08:36 Resp 16 09/04/18 08:36 BP 112/68 09/04/18 08:36 Pulse Ox 94 L 09/04/18 08:36 Intake & Output 09/03/18 09/04/18 09/04/18 18:59 06:59 18:59 Intake Total 1970 240 Output Total 1900 225 Balance 70 -225 240 Intake: Intake, IV Titration 1250 Amount D5-0.45% NaCl with KCl 1250 20Meq/l 1,000 ml @ 125 mls/hr IV .Q8H [facility] Rx#: [id number] Oral 720 240 Output: Urine 1900 225 Uretheral (Noel) 1900 Other: Voiding Method Indwelling Catheter - Labs CBC & Chem 7: 09/04/18 06:43 09/04/18 06:43 Labs: Abnormal Lab Results - Last 24 Hours (Table) 09/04/18 09/04/18 Range/Units 06:43 06:43 WBC 10.8 H (3.8-10.6) k/uL Neutrophils # 8.1 H (1.3-7.7) k/uL BUN 3 L (9-20) mg/dL Magnesium 1.3 L (1.6-2.3) mg/dL Procedures: Robotic sigmoid colectomy, 09/02/2018 Patient Condition at Discharge: Stable Plan - Discharge Summary Discharge Rx Participant: Yes New Discharge Prescriptions: New Simethicone 40 mg/0.6 ml Drops [Mylicon Drops] 40 mg PO QID #30 ml Ciprofloxacin HCl [Cipro] 500 mg PO Q12HR #14 tablet HYDROcodone/APAP 5-325MG [Ripley 5-325] 1 tab PO Q4HR PRN 3 Days #18 tab PRN Reason: Pain metroNIDAZOLE [Flagyl] 500 mg PO TID #21 tab Continue Citalopram Hydrobromide [Citalopram HBr] 20 mg PO QAM Magnesium Oxide [Mag-Oxide] 400 mg PO DAILY Discontinued Multivitamins, Thera [Multivitamin (formulary)] 1 tab PO DAILY Potassium 99 mg PO DAILY Biotin 5,000 mcg PO DAILY L.acidoph,Paracasei, B.lactis [Probiotic] 1 cap PO DAILY Cholecalciferol [Vitamin D3] 5,000 unit PO DAILY Vitamin D3 + K2 1 tab PO DAILY Discharge Medication List Citalopram Hydrobromide [Citalopram HBr] 20 mg PO QAM 08/31/18 [History] Magnesium Oxide [Mag-Oxide] 400 mg PO DAILY 08/31/18 [History] Ciprofloxacin HCl [Cipro] 500 mg PO Q12HR #14 tablet 09/04/18 [Rx] HYDROcodone/APAP 5-325MG [Ripley 5-325] 1 tab PO Q4HR PRN 3 Days #18 tab [Rx] Simethicone 40 mg/0.6 ml Drops [Mylicon Drops] 40 mg PO QID #30 ml 09/04/18 [Rx] metroNIDAZOLE [Flagyl] 500 mg PO TID #21 tab 09/04/18 [Rx] Follow up Appointment(s)/Referral(s): Galina Awan MD [STAFF PHYSICIAN] - 09/06/18 2:00 pm (Please call to confirm time) Patient Instructions/Handouts: Colectomy (DC), Colectomy Diet (DC) Activity/Diet/Wound Care/Special Instructions: High protein shakes 3 times daily at least 60-90 g advised. May have mashed potatoes. No solids. No roughage. No salads. No bath tub soaks. No showering. Sponge bath only. Portable wound VAC to be discontinued in the office. Discharge Disposition: HOME SELF-CARE
--- NOTE | 2018-09-06 13:30 | CDI ---
Documentation Clarification Form Date: 09/06/18 From: Desiree Austen [place], Appraiser Auditor Hours-8:30 am & 5 pm Oleg Admit Date: 09/02/2018 11:03:00 AM Patient Name: Dennys Scales Visit Number: [id number] Discharge Date: 09/04/2018 5:24:00 PM ATTENTION: The Clinical Documentation Specialists (CDI) and [facility] Coding Staff appreciate your assistance in clarifying documentation. Please respond to the clarification below the line at the bottom and electronically sign. The CDI & [facility] Coding staff will review the response and follow-up if needed. Please note: Queries are made part of the Legal Health Record. If you have any questions, please contact the author of this message via ITS. Dr. Galina Awan Documentation states: Low magnesium History/Risk Factors: diverticuliits of sigmoid Clinical indicators: K-1.3 Treatment: magnesium infusion Clinical significance of diagnostic testing and treatment CANNOT be assumed or coded without physician documentation of significance if any. Please clarify what abnormal laboratory signifies: Hypomagnesium Abnormal Lab Value Unable to determine Other, please specify Place see discharge summary and op note that the patient had low magnesium levels secondary to chronic low magnesium levels and abnormal lab value. Treatment included magnesium infusion. KM 09/11/18 @ 17:10 [facility]
== END 2018-09-04 17:24 | disposition home or self-care (01) | DRG 331 ==
LOC: 2ORMAIN 09-02 11:03 → 4SSUR 09-02 17:12
PROVIDERS: ADMIT Surgery Plastic and Reconstructive Surgery; ATTEND Surgery Plastic and Reconstructive Surgery
PROC: 0DTN4ZZ Resection of Sigmoid Colon, Percutaneous Endoscopic Approach (ICD-10-PCS; principal; 2018-09-02 12:15)
PROC: 0DNW4ZZ Release Peritoneum, Percutaneous Endoscopic Approach (ICD-10-PCS; principal; 2018-09-02 12:15)
PROC: 8E0W3CZ Robotic Assisted Procedure of Trunk Region, Percutaneous Approach (ICD-10-PCS; principal; 2018-09-02 12:15)
PROC: 0DNN4ZZ Release Sigmoid Colon, Percutaneous Endoscopic Approach (ICD-10-PCS; principal; 2018-09-02 12:15)
DX: K57.32 Diverticulitis of large intestine without perforation or abscess without bleeding (principal); E66.01 Morbid (severe) obesity due to excess calories; Z68.35 Body mass index [BMI] 35.0-35.9, adult; G47.30 Sleep apnea, unspecified; F41.9 Anxiety disorder, unspecified; Z79.899 Other long term (current) drug therapy; Z87.442 Personal history of urinary calculi; Z98.52 Vasectomy status; Z83.2 Family history of diseases of the blood and blood-forming organs and certain disorders involving the immune mechanism; E83.42 Hypomagnesemia
CPT/HCPCS: 80048; 80053; 83735; 84100; 85025; 86850; 86900; 86901; 88307

== ENCOUNTER → 2018-08-29 | Outpatient (CLI) | payer BC ==
[2018-08-29 10:06] LABS: HCT 48.8 % (39.0-53.0); HGB 16.9 gm/dL (13.0-17.5); MCH 31.8 pg (25.0-35.0); MCHC 34.6 g/dL (31.0-37.0); Mean Platelet Volume 6.4; Platelet Count 333 k/uL (150-450); RBC 5.31 m/uL (4.30-5.90); WBC 8.4 k/uL (3.8-10.6)
[2018-08-29 10:37] LABS: ALT 32 U/L (21-72); AST 30 U/L (17-59); Albumin 4.4 g/dL (3.5-5.0); Alkaline Phosphatase 56 U/L (38-126); Anion Gap 11 mmol/L; Blood Urea Nitrogen 22 mg/dL (9-20); Calcium 9.9 mg/dL (8.4-10.2); Carbon Dioxide 25 mmol/L (22-30); Chloride 104 mmol/L (98-107); Glucose 75 mg/dL (74-99); Potassium 5.1 mmol/L (3.5-5.1); Sodium 140 mmol/L (137-145); Total Bilirubin 0.8 mg/dL (0.2-1.3)
== END ==
LOC: LABPAT 09:13
PROVIDERS: ATTEND Surgery Plastic and Reconstructive Surgery
DX: Z01.812 Encounter for preprocedural laboratory examination (principal)
CPT/HCPCS: 36415; 80053; 85027; 86850; 86900; 86901

== ENCOUNTER → 2019-04-06 | Outpatient (CLI) | payer BC ==
--- NOTE | 2019-04-06 10:06 | CT ---
EXAMINATION TYPE: CT chest wo con DATE OF EXAM: 04/06/2019 COMPARISON: None HISTORY: Lung mass CT DLP: 597.9 mGycm, Automated exposure control for dose reduction was used. CONTRAST: Performed injected with 0 mL of Isovue 300. TECHNIQUE: Axial images were obtained at 5 mm thick sections. Reconstructed images are reviewed on [employer] computer in the coronal plane. FINDINGS: Portion of the thyroid visualized is normal. No suspicious lung nodules or focal infiltrates are present. No enlarged mediastinal or hilar adenopathy is evident. The ascending aorta diameter at the level o f the main pulmonary artery is 3.2 cm. The main pulmonary artery diameter at the bifurcation is 3.[address] sections are obtained through the upper abdomen. Abdomen is essentially unremarkable. Fat extends along the right mediastinal border may account for some fullness on the remelt worker image. IMPRESSIONS: 1. No acute pulmonary process.
== END | disposition home or self-care (01) ==
LOC: RADCTMAIN 07:33
PROVIDERS: ATTEND Family Medicine
DX: R91.8 Other nonspecific abnormal finding of lung field (principal)
CPT/HCPCS: 71250

== ENCOUNTER → 2021-01-07 | Outpatient (CLI) | payer OTHER ==
--- NOTE | 2021-01-07 14:29 | XR ---
EXAMINATION TYPE: XR tibia fibula LT DATE OF EXAM: 01/07/2021 CLINICAL HISTORY: Fall injury with pain TECHNIQUE: Two views of the left leg are obtained. COMPARISON: None. FINDINGS: There is no acute fracture or dislocation seen in the left tibia or fibula. Wbxc-ni-hxlcet te tricompartment joint space loss with mild patellofemoral compartment spurring. Ankle mortise symme try is preserved. Mild diffuse subcutaneous edema is noted. IMPRESSION: There is no acute fracture or dislocation seen in the left tibia or fibula.
== END | disposition home or self-care (01) ==
LOC: RADXRMAIN 13:33
PROVIDERS: ATTEND Emergency Medicine
DX: S86.112A Strain of other muscle(s) and tendon(s) of posterior muscle group at lower leg level, left leg, initial encounter (principal)

== ENCOUNTER → 2021-05-17 | Outpatient (CLI) | payer BC ==
--- NOTE | 2021-05-19 07:45 | US ---
EXAMINATION TYPE: US abdomen complete DATE OF EXAM: 05/17/2021 COMPARISON: CT dated 01/25/2018 CLINICAL HISTORY: R10.9 Abdominal painR10.9 Abdominal pain. EXAM MEASUREMENTS: Liver Length: 10.2 cm Gallbladder Wall: 0.2 cm CBD: 0.3 cm Spleen: 10.5 cm Right Kidney: 10.1 x 5.4 x 6.5 cm Left Kidney: 10.9 x 5.9 x 5.9 cm Pancreas: visualized portions appear echogenic Liver: wnl Gallbladder: No stones seen Evidence for sonographic Gross's sign: No CBD: wnl Spleen: wnl Right Kidney: No hydronephrosis or masses seen Left Kidney: No hydronephrosis or masses seen Upper IVC: wnl Abd Aorta: wnl The liver is homogenous. The intrahepatic portion of the IVC and proximal abdominal aorta are within normal limits. There is no evidence of cholelithiasis. Common bile duct is unremarkable. The visu alized portions of the pancreas are homogenous. The spleen is unremarkable. Kidneys are symmetric a nd free of hydronephrosis. No renal lesions are seen. IMPRESSION: Unremarkable study.
== END | disposition home or self-care (01) ==
LOC: RADUSWWP 08:19
PROVIDERS: ATTEND Family Medicine
DX: R10.9 Unspecified abdominal pain (principal)
CPT/HCPCS: 76700

== ENCOUNTER 2021-08-06 08:19 | Day surgery (SDC) | payer BC ==
[2021-08-04 14:42] VITALS: BMI 41.5
--- NOTE | 2021-08-06 08:04 | P.GSHP ---
History of Present Illness H&P Date: 08/06/21 CHIEF COMPLAINT: GERD and colon screen HISTORY OF PRESENT ILLNESS: The patient is a 51-year-old male who presents with gastroesophageal reflux disease and need for colon screen. Upper and lower endoscopy were offered for further evaluation and management. PAST MEDICAL HISTORY: Please see list. PAST SURGICAL HISTORY: Please see list. MEDICATIONS: Please see list. ALLERGIES: Please see list. SOCIAL HISTORY: No illicit drug use FAMILY HISTORY: No reports of Crohn disease or ulcerative colitis. REVIEW OF ORGAN SYSTEMS: CONSTITUTIONAL: No reports of fevers or chills. GI: Denies any blood in stools or constipation. PHYSICAL EXAM: VITAL SIGNS: Stable GENERAL: Well-developed pleasant in no acute distress. HEENT: No scleral icterus. Extraocular movements grossly intact. Moist buccal mucosa. NECK: Supple without lymphadenopathy. CHEST: Unlabored respirations. Equal bilateral excursions. CARDIOVASCULAR: Regular rate and rhythm. Distal 2+ pulses. ABDOMEN: Soft, nondistended. MUSCULOSKELETAL: No clubbing, cyanosis, or edema. ASSESSMENT: 1. Gastroesophageal reflux disease 2. Colon screen. PLAN: 1. Recommend proceeding with an upper and lower endoscopy Past Medical History Past Medical History: Osteoarthritis (OA), Sleep Apnea/CPAP/BIPAP Additional Past Medical History / Comment(s): USES C PAP MACHINE. kidney stones,uti, diverticulosis, depression/anxiety. History of Any Multi-Drug Resistant Organisms: None Reported Past Surgical History: Bowel Resection Additional Past Surgical History / Comment(s): vasectomy, cyst removed from tongue, EXC lump on neck bx-neg, cystocopy, december 2017-kidney stone removed, stent placed for 1 week then removed. COLONOSCOPY, COLON RESECTION Past Anesthesia/Blood Transfusion Reactions: No Reported Reaction Additional Past Anesthesia/Blood Transfusion Reaction / Comment(s): never recieved blood. Smoking Status: Never smoker - Past Family History Mother Family Medical History: Deep Vein Thrombosis (DVT) Medications and Allergies Home Medications Medication Instructions Recorded Confirmed Type Citalopram Hydrobromide 20 mg PO QAM 08/31/18 08/04/21 History [Citalopram HBr] Anastrozole 1 mg PO MOWEFR 08/04/21 08/04/21 History Testosterone Cypionate 300 mg IM Q14D 08/04/21 08/04/21 History [Depo-Testosterone] Allergies Allergy/AdvReac Type Severity Reaction Status Date / Time No Known Allergies Allergy Verified 08/04/21 14:18
[2021-08-06 08:45] VITALS: TEMP 98
[2021-08-06] MEDS ORDERED: LACTATED RINGERS 1,000 ML IV ONE (08:46)
[2021-08-06] MEDS ORDERED: PROPOFOL 10 MG/ML 20 ML VIAL IV ONE (08:52)
--- NOTE | 2021-08-06 09:07 | P.PCN ---
Date of Procedure: 08/06/21 Description of Procedure: PREOPERATIVE DIAGNOSIS: Gastroesophageal reflux disease. Epigastric abdominal pain Morbid obesity due to excess calories POSTOPERATIVE DIAGNOSIS: Gastroesophageal reflux disease with erosive esophagitis Morbid obesity due to excess calories Gastritis, acute and chronic bleeding OPERATION: Esophagogastroduodenoscopy with biopsies along antrum and duodenum SURGEON: Galina Awan MD ANESTHESIA: MAC. INDICATIONS: The patient is a 51-year-old female who presents with a history of reflux disease. Benefits and risks of the procedure were described. Informed consent was obtained. DESCRIPTION: The patient was brought into the endoscopy suite and laid in the left lateral decubitus position. An Olympus gastroscope was passed along the posterior oropharynx down to the distal esophagus where the squamocolumnar junction was encountered at 40 cm from the incisors. The stomach was entered and no bile reflux was found. Additional findings are listed below. Biopsies with cold forceps were obtained of the antrum. The first through third portion of the duodenum was examined and cold forceps biopsies obtained for duodenitis. Retroflexion of the scope confirmed Hill grade 2 lower esophageal valve. The squamocolumnar junction demonstrated LA grade B erosive esophagitis. The stomach was desufflated. The patient tolerated the procedure well. FINDINGS: Squamocolumnar junction 40 cm from the incisors. Diaphragmatic hiatus at 40 cm. Hill grade 2 lower esophageal valve. LA grade B erosive esophagitis. Cold forceps biopsies obtained of the duodenum for celiac disease and duodenitis. Acute on chronic gastritis with recent bleed RECOMMENDATIONS: 1. Omeprazole 40 mg daily for 2 weeks
--- NOTE | 2021-08-06 09:20 | P.PCN ---
Date of Procedure: 08/06/21 Description of Procedure: PREOPERATIVE DIAGNOSIS: Colonoscopy screening POSTOPERATIVE DIAGNOSIS: Tubular adenoma transverse colon Sigmoid diverticulosis with pandiverticulosis History of sigmoid colectomy OPERATION: Colonoscopy to the ileocecal valve and appendiceal orifice, cecum Colonoscopy with cold forceps biopsy SURGEON: Galina Awan MD. ANESTHESIA: MAC. INDICATIONS: The patient is an 51-year-old male who presents for colonoscopy screening. Benefits and risks were described and informed consent was obtained. DESCRIPTION OF PROCEDURE: The patient had undergone Sutab prep. The patient had been brought into the operating room and laid in the left lateral decubitus position. After adequate intravenous sedation, the rectum was examined with 2% lidocaine jelly. The prostate was unremarkable. No external hemorrhoids were encountered. The rectal tone was within normal limits. No lesions were palpated in the rectal vault. An Olympus colonoscope was advanced until the cecum, ileocecal valve and appendiceal orifice were clearly viewed. The prep was good. Sigmoid diverticulosis with pandiverticulosis was encountered. Sigmoid colon anastomosis was identified. Colonic polyps were found and removed. No evidence of focal colitis was found. Retroflexion of the scope demonstrated grade 1 internal hemorrhoids without active bleeding or inflammation. The colon was desufflated. The patient had tolerated the procedure well. Withdrawal time was over 6 minutes. FINDINGS: Aronchick preparation quality scale 2 (1-5) Internal hemorrhoids, grade 1 No external hemorrhoids No arteriovenous malformations. Sigmoid diverticulosis with pandiverticulosis Removal of 1 polyps: - Cold forceps biopsy at mid transverse colon, 5 mm polyp. No focal colitis. RECOMMENDATIONS: Repeat colonoscopy 5 years, 2025 Plan - Discharge Summary Discharge Rx Participant: No New Discharge Prescriptions: Continue Citalopram Hydrobromide [Citalopram HBr] 20 mg PO QAM Anastrozole 1 mg PO MOWEFR Testosterone Cypionate [Depo-Testosterone] 300 mg IM Q14D Discharge Medication List Citalopram Hydrobromide [Citalopram HBr] 20 mg PO QAM 08/31/18 [History] Anastrozole 1 mg PO MOWEFR 08/04/21 [History] Testosterone Cypionate [Depo-Testosterone] 300 mg IM Q14D 08/04/21 [History] Follow up Appointment(s)/Referral(s): Galina Awan MD [STAFF PHYSICIAN] - As Needed Patient Instructions/Handouts: Diverticulosis Diet (GEN), Diverticulosis (GEN), Colorectal Polyps (DC), *Surgery [facility] - (Anesthesia) Endoscopy Discharge Instructions Activity/Diet/Wound Care/Special Instructions: Repeat colonoscopy 5 years, 2025 Discharge Disposition: HOME SELF-CARE
[2021-08-06] MEDS ORDERED: LIDOCAINE 1% (10MG/ML) FOR IV START INTRADERMA PRN (09:29)
[2021-08-06] MEDS ORDERED: LACTATED RINGERS 1,000 ML IV SCH (09:29)
[2021-08-06 09:59] VITALS: BP 110/79; PULSE 78; RESP 16
== END 2021-08-06 10:09 | disposition home or self-care (01) ==
LOC: ORWHC2ENDO 08:19
PROVIDERS: ATTEND Surgery Plastic and Reconstructive Surgery
DX: Z12.11 Encounter for screening for malignant neoplasm of colon (principal); K22.11 Ulcer of esophagus with bleeding; K29.51 Unspecified chronic gastritis with bleeding; K57.30 Diverticulosis of large intestine without perforation or abscess without bleeding; K64.0 First degree hemorrhoids; M19.90 Unspecified osteoarthritis, unspecified site; G47.33 Obstructive sleep apnea (adult) (pediatric); F32.A Depression, unspecified; F41.9 Anxiety disorder, unspecified; Z87.19 Personal history of other diseases of the digestive system; Z87.440 Personal history of urinary (tract) infections; Z87.442 Personal history of urinary calculi; Z98.52 Vasectomy status; Z90.49 Acquired absence of other specified parts of digestive tract; Z98.890 Other specified postprocedural states; Z82.49 Family history of ischemic heart disease and other diseases of the circulatory system; E66.01 Morbid (severe) obesity due to excess calories; Z68.41 Body mass index [BMI] 40.0-44.9, adult; Z79.811 Long term (current) use of aromatase inhibitors; Z79.890 Hormone replacement therapy; Z79.899 Other long term (current) drug therapy
CPT/HCPCS: 88305; 45380; 43239; J2704

== ENCOUNTER → 2021-08-28 | Outpatient (CLI) | payer BC ==
[2021-08-28 10:59] VITALS: TEMP 98.3
[2021-08-28] MEDS: SODIUM CHLORIDE 0.9% 500 ML 500 ML in EMPTY BAG 1 BAG IV PRN (11:08)
[2021-08-28] MEDS: CASIRIVIMAB (REGN10933) (EUA) 600 MG, IMDEVIMAB (REGN10987) (EUA) 600 MG in SODIUM CHLO... IVPB NR (11:10)
[2021-08-28] MEDS: SODIUM CHLORIDE 0.9% 50 ML IVPB NR (11:47)
[2021-08-28 12:05] VITALS: BP 135/80; PULSE 73; RESP 18
== END ==
LOC: PROCWHC3 09:56
PROVIDERS: ATTEND Family Medicine
DX: U07.1 COVID-19 (principal); E66.9 Obesity, unspecified; Z68.41 Body mass index [BMI] 40.0-44.9, adult
CPT/HCPCS: 96360; Q0244; M0243

== ENCOUNTER → 2021-11-07 | Outpatient (CLI) | payer BC ==
--- NOTE | 2021-11-08 00:15 | MR ---
EXAMINATION TYPE: MR thoracic spine wo con DATE OF EXAM: 11/07/2021 COMPARISON: None HISTORY: Mid back pain for over a year. Multiplanar multiecho imaging of the thoracic spine without contrast. The thoracic vertebra have Fairly normal alignment. At T7-8 there is posterior disc herniation and some narrowing of the spinal canal. There is slight effacement of the thoracic spinal cord. This extends more to the right side. There is no thoracic paraspinal mass. There is no compression fracture. The posterior elements are in tact. There is posterior disc herniations at C5-6 and C6-7 with some narrowing of the spinal canal. N o cervical cord edema. I see no focal bone destruction. IMPRESSION: There is posterior T7-8 disc herniation and mild right side impingement on the spinal cord. No compre ssion fracture. Posterior disc herniations noted also at C5-6 and C6-7.
== END | disposition home or self-care (01) ==
LOC: RADMRIMAIN 21:36
PROVIDERS: ATTEND Family Medicine
DX: M51.24 Other intervertebral disc displacement, thoracic region (principal)
CPT/HCPCS: 72146